=== PATIENT | female | born 1975 | race Caucasian/White ===

== ENCOUNTER 2016-10-29 17:25 | Inpatient (IN) | payer OTHER ==
[~2016-10-29] VITALS: Ht 154.9 cm; Wt 103.9 kg
[~2016-10-29 17:25] MED LIST: ASPIRIN81 M1 OR; ATENOLOL25 MG PO; AUGMENTIN875 MG OR; BACTRIM DS1 TAB PO; CARAFATE OR; CEPHALEXIN500 MG OR; CIPROFLOXACN500 MG PO; CRESTOR5 MG OR; FLEXERIL OR; FLUOXETINE10 MG PO; GABAPENTIN300 MG PO; HUMULIN 70/30 SC; LEVEMIR SC; LEXAPRO10 MG OR; LEXAPRO20 MG OR; LIORESAL10 MG OR; LISINOPRIL20 MG PO; LOPID600 MG OR; LORTAB 5 OR; LYRICA75 MG OR; METFORMIN500 MG PO; METHADONE10 M1 PO; MOTRIN800 MG/TAB PO; NABUMETONE750 MG OR; NAPROSYN500 MG OR; NO HOME MEDS; PERCOGESIC1 TAB OR; PRAVASTATIN SOD20 MG PO; PRAVASTATIN SOD40 MG OR; PRILOSEC40 MG PO; REGLAN10 MG PO; ROXICODONE30 MG PO; ST JOSEPH75 MG OR; TRAZODONE150 MG OR; TRAZODONE150 MG PO; XANAX2 MG PO; ZANAFLEX4 MG PO
--- NOTE | 2016-10-29 17:35 | NUR ---
PT AMBULATED TO ROOM 13 WITH DAUGHTER.
[2016-10-29 18:11] LABS: HEMATOCRIT 36.2 % (37.0-47.0); HEMOGLOBIN 12.1 g/dl (12.0-16.0); IMMATURE GRANULOCYTES 1.1 % (0.0-1.0); MEAN CELL VOLUME 79.7 fL CALC (80.0-100.0); MEAN CORPUSCULAR HGB 26.7 pG CALC (26.0-32.0); MEAN CORPUSCULAR HGB CONC 33.4 g/L CALC (32.0-36.0); NEUT# 15.7 thou/uL (2.00-7.15); RED BLOOD COUNT 4.54 mill/uL (4.20-5.60); RED CELL DISTRI WIDTH 13.8 % (11.5-15.5)
[2016-10-29 18:13] LABS: URINE BILIRUBIN - DIPSTICK NEGATIVE (NEGATIVE); URINE BLOOD DIPSTICK MODERATE (NEGATIVE); URINE CLARITY SLIGHT CLOUDY; URINE COLOR YELLOW; URINE GLUCOSE - DIPSTICK NEGATIVE (NEGATIVE); URINE KETONE NEGATIVE (NEGATIVE); URINE PROTEIN - DIPSTICK 100 mg/dL (NEG-TRACE); URINE UROBILINOGEN - DIPSTICK >=8.0 E.U./dL (0.2)
[2016-10-29 18:19] LABS: URINE LEUK ESTERASE SMALL (NEGATIVE); URINE NITRITE - DIPSTICK POSITIVE (Negative)
[2016-10-29 18:21] LABS: URINE BACTERIA FEW hpf; URINE SQUAMOUS EPITHELIAL CELL FEW EPI/hpf (0-FEW); URINE WBC 20-50 WBC/hpf (0-5)
[2016-10-29 18:29] LABS: ALBUMIN 3.4 g/dL (3.2-5.0); ALKALINE PHOSPHATASE 278 u/l (38-126); ANION GAP 18 (6-22 (CALC)); BILIRUBIN, TOTAL 0.4 mg/dL (0.0-1.4); BUN 15 mg/dL (7-17); BUN/CREATININE RATIO 20 (12-20 (CALC)); CALCIUM 9.5 mg/dL (8.4-10.2); CARBON DIOXIDE 30 mmol/l (22-30); CHLORIDE 95 mmol/l (95-108); CREATININE 0.8 mg/dL (0.5-1.0); GFR > 60 ML/MIN (>=60 (CALC)); GFR FOR AFR.AMER. > 60 ML/MIN (>=60 (CALC)); GLUCOSE 131 mg/dL (65-105); POTASSIUM 3.4 mmol/l (3.5-5.1); SGOT/AST 26 u/l (14-36); SGPT/ALT 36 u/l (9-52); SODIUM 139 mmol/l (137-146); TOTAL PROTEIN 7.5 g/dL (6.3-8.2)
--- NOTE | 2016-10-29 18:40 | NUR ---
PT RESTING COMFORTABLY RATES PAIN 0/10 AFTER MEDS ORDERED. 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 SRX2,CALL LIGHT WITHIN REACH. VSS.DAUGHTER-IN -LAW AT BEDSIDE
--- NOTE | 2016-10-29 18:50 | NUR ---
REPORT TO ASHLIE ANDERSON
--- NOTE | 2016-10-29 19:20 | NUR ---
PT PROVIDED ICE CHIPS, OK PER DR HOBSON.
--- NOTE | 2016-10-29 19:57 | NUR ---
PT TO CT.
--- NOTE | 2016-10-29 20:18 | NUR ---
PT RETURNED FROM CT.
--- NOTE | 2016-10-29 20:24 | NUR ---
PT RELATED PAIN IS DOING OK.
--- NOTE | 2016-10-29 20:55 | NUR ---
REPORT TO [facility]/SURG.
[2016-10-29 21:00] VITALS: BP 124/77
--- NOTE | 2016-10-29 21:00 | NUR ---
PT TO 290 VIA W/C WITH
--- NOTE | 2016-10-29 21:00 | NUR ---
PT ARRIVED TO UNIT VIA WHEELCHAIR WITH ASHLIE ANDERSON. AMBULATED FROM W/C TO BED INDEPENDENTLY. STATES THAT ANALGESICS ADMINISTERED IN ER WERE EFFECTIVE. RESPIRATIONS ARE EVEN AND UNLABORED. ORIENTED TO ROOM. SAFETY MEASURES PUT IN PLACE. CALL LIGHT SYSTEM REVIEWED AND IN REACH.
--- NOTE | 2016-10-30 | NUR ---
PT IS ALSEEP AT THIS TIME. NO SIGNS OF PAIN NOTED. DIALUDID GIVEN EARLIER FOR LOWER BACK PAIN THAT RADIATES TO RIGHT ABDOMEN. RESPIRATIONS EVEN AND UNLABORED. IV FLUIDS INFUSING ADEQUATLEY IN IV SITE THAT APPEARS HEALTHY. AND SON AT BEDSIDE. SCDS IN PLACE. SAFETY MEASURES IN PLACE. CALL LIGHT IN REACH.
[2016-10-30 04:50] VITALS: BP 144/92
--- NOTE | 2016-10-30 07:06 | NUR ---
REPORT RECIEVED FROM DREAD HONG; PT RESTING IN BED; TEMP RECHECKED READING 100.4; PT MEDICATED WITH TYLENOL PER PRN ORDER; WILL RECHECK TEMP LATER; PT DENIES ANY PAIN OR DISCOMFORT AT THIS TIME; PT ENCOURAGED TO CALL FOR ANY ASSISTANCE NEEDED; CALL LIGHT WITHIN REACH; WILL CONTINUE TO MONITOR
[2016-10-30 07:47] VITALS: BP 125/81
[2016-10-30 08:49] LABS: ANION GAP 14 (6-22 (CALC)); BUN 15 mg/dL (7-17); BUN/CREATININE RATIO 19 (12-20 (CALC)); CALCIUM 8.2 mg/dL (8.4-10.2); CARBON DIOXIDE 28 mmol/l (22-30); CHLORIDE 100 mmol/l (95-108); CREATININE 0.8 mg/dL (0.5-1.0); GFR > 60 ML/MIN (>=60 (CALC)); GFR FOR AFR.AMER. > 60 ML/MIN (>=60 (CALC)); GLUCOSE 190 mg/dL (65-105); POTASSIUM 3.5 mmol/l (3.5-5.1); SODIUM 137 mmol/l (137-146)
[2016-10-30 09:02] LABS: HEMATOCRIT 30.4 % (37.0-47.0); HEMOGLOBIN 10.1 g/dl (12.0-16.0); MEAN CELL VOLUME 80.6 fL CALC (80.0-100.0); MEAN CORPUSCULAR HGB 26.8 pG CALC (26.0-32.0); MEAN CORPUSCULAR HGB CONC 33.2 g/L CALC (32.0-36.0); NEUT# 13.19 thou/uL (2.00-7.15); RED BLOOD COUNT 3.77 mill/uL (4.20-5.60)
--- NOTE | 2016-10-30 12:13 | NUR ---
PT SITTING UP IN BED FOR LUNCH; NO S/S OF DISTRESS NOTED; PT STATES PAIN AND NAUSEA ARE BETTER AT THIS TIME; IVF INFUSING AT PRESCRIBED RATE; CALL LIGHT WITHIN REACH; WILL CONTINUE TO MONITOR
--- NOTE | 2016-10-30 14:50 | NUR ---
PT C/O FLANK PAIN RATING 6 OUT OF 10; MEDICATED WITH LORTAB PER PRN ORDERS; IVF INFUSING AT PRESCRIBED RATE; PT DENIES ANY N/V AT THIS TIME; PT ENCOURAGED TO CALL FOR ANY ASSISTANCE NEEDED; CALL LIGHT WITHIN REACH; WILL CONTINUE TO MONITOR
[2016-10-30 15:26] VITALS: BP 123/75
--- NOTE | 2016-10-30 16:30 | NUR ---
PT SITTING UP IN BED; NO S/S OF DISTRESS NOTED; PT DENIES ANY PAIN AT THIS TIME; IVF INFUSING AT PRESCRIBED RATE; CALL LIGHT WITHIN REACH; WILL CONTINUE TO MONITOR
[2016-10-30 19:10] VITALS: BP 142/88
[2016-10-30 19:15] VITALS: BP 128/68
--- NOTE | 2016-10-30 20:40 | NUR ---
PT RESTING IN SEMI FOWLERS POSITION;PT DENIES ANY PAIN OR DISCOMFORTS;IV FLUIDS INFUSING WELL TO LAC;ASSESSMENT COMPLETED;PT HAS A CURRENT TEMP OF 100.8;TYLENOL PROVIDED PER PRN ORDER;BLANKETS REMOVED,AC LOWERED AND COOL PACKS PROVIDED;PT AMBULATED TO RESTROOM WITH STEADY GAIT;PT DENIES ANY NEEDS AT THIS TIME;SAFETY PRECAUTIONS IN PLACE;BED IN LOWEST POSITION WITH CALL LIGHT IN REACH;WILL CONTINUE TO MONITOR
--- NOTE | 2016-10-30 23:00 | NUR ---
PT RESTING IN SEMI FOWLERS POSITION;PT COMPLAINS OF BACK PAIN RATING 7/10 ON THE PAIN SCALE AND REQUESTS PRN PAIN MEDICATION;PT MEDICATED ACCORDINGLY;IV FLUIDS INFUSING WELL;PT DENIES ANY OTHER NEEDS AT THIS TIME;BED IN LOWEST POSITION WITH CALL LIGHT IN REACH;WILL CONTINUE TO MONITOR
[2016-10-31 04:00] VITALS: BP 142/88
--- NOTE | 2016-10-31 04:00 | NUR ---
PT RESTING IN SEMI FOWLERS POSITION;PT COMPLAINS OF BACK AND RIGHT FLANK PAIN RATING 7/10 ON THE PAIN SCALE AND REQUESTS PRN PAIN MEDICATION;MEDICATED ACCORDINGLY;PT REPORTS THAT SHE HAD VOMITED WITHIN THE HOUR,THIS WAS NOT OBSERVED BY WRITTER;PRN ZOFRAN PROVIDED;IV FLUIDS INFUSING WELL AT THIS TIME;PT DENIES ANY OTHER NEEDS;BED IN LOWEST POSITION WITH CALL LIGHT IN REACH;WILL CONTINUE TO MONITOR
--- NOTE | 2016-10-31 07:00 | NUR ---
SHIFT CHANGE REPORT FROM WARREN GANDHI SLEEPING WITH HEAD COVERED AT THIS TIME, BREATHING EVEN AND NON-LABORED, IVF INFUSING, CALL OJEDA IN REACH.
--- NOTE | 2016-10-31 07:43 | NUR ---
AWAKE AND ALERT AT THIS TIME, C/O R. FLANK PAIN, NEED ADDRESSED, CALL OJEDA IN REACH.
[2016-10-31 08:16] VITALS: BP 126/73
--- NOTE | 2016-10-31 11:58 | NUR ---
SITTING UP AT BEDSIDE FOR MEAL, ALL CONCERNS ADDRESSED, CALL OJEDA IN REACH.
[2016-10-31 16:05] VITALS: BP 143/91
--- NOTE | 2016-10-31 16:22 | NUR ---
RESTING/RELAXING IN BED, ALL NEEDS ADDRESSED, CALL OJEDA IN REACH.
[2016-10-31 20:15] VITALS: BP 157/87
--- NOTE | 2016-10-31 20:40 | NUR ---
PATIENT RESTING IN BED AT THIS TIME-C/O RIGHT FLANK PAIN 8/10 ON PAIN SCALE. PATIENT MEDICATED WITH LORTAB 10/325MG PO ORDERED. PATIENT UP TO THE BR-STEADY ON HER FEET. PATIENT VOIDED 200CC OF YELLOW URINE-INSTRUCTED TO SAVE URINE FOR I&O. PATIENT STATES THAT SHE HAD BM EARLIER AFTER NOT GOING FOR 5 DAYS. ABD IS SOFT AND NON-TENDER WITH ACTIVE BS PRESENT. IVF NS PATENT AND INFUSING AT 150CC/HR VIA LEFT AC SITE-SITE APPEARS HEALTHY AT THIS TIME. SAFETY PRECAUTIONS REINFORCED. CALL LIGHT IN REACH. WILL CONT TO MONITOR.
--- NOTE | 2016-10-31 20:45 | NUR ---
PATIENT C/O RIGHT SIDED FLANK PAIN-MEDICATED WITH LORTAB ORDERED FOR PAIN. INSTRUCTED REGUARDING I&O AND URINE HAT PLACED IN THE TOILET. 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 CALL LIGHT IN REACH. WILL CONT TO MONITOR.
--- NOTE | 2016-11-01 | NUR ---
PATIENT APPEARS SLEEPING AT THIS TIME WITH EYES CLOSED. CALL LIGHT IN REACH. IVF PATENT AND INFUSING AT 150CC/HR VIA LEFT AC IV SITE. SITE APPEARS HEALTHY AT TH IS TIME. WILL CONT TO MONITOR.
--- NOTE | 2016-11-01 02:36 | NUR ---
PATIENT CALLED AND C/O RIGHT SIDE PAIN-8/10 ON PAIN SCALE. MEDICATED WITH LORTAB 10/325MG PO ORDERED. PATIENT CONT TO VOID QS-HAT EMPTIED. CALL LIGHT IN REACH. WILL CONT TO MONITOR.
--- NOTE | 2016-11-01 03:49 | NUR ---
PATIENT APPEARS SLEEPING AT THIS TIME WITH EYES CLOSED. CALL LIGHT IN REACH. WILL CONT TO MONITOR.
[2016-11-01 05:00] VITALS: BP 134/90
[2016-11-01 06:10] LABS: HEMATOCRIT 31.2 % (37.0-47.0); HEMOGLOBIN 10.5 g/dl (12.0-16.0); MEAN CELL VOLUME 79.4 fL CALC (80.0-100.0); MEAN CORPUSCULAR HGB 26.7 pG CALC (26.0-32.0); MEAN CORPUSCULAR HGB CONC 33.7 g/L CALC (32.0-36.0); RED BLOOD COUNT 3.93 mill/uL (4.20-5.60); RED CELL DISTRI WIDTH 13.5 % (11.5-15.5)
[2016-11-01 06:27] LABS: ANION GAP 14 (6-22 (CALC)); BUN 9 mg/dL (7-17); BUN/CREATININE RATIO 14 (12-20 (CALC)); CALCIUM 8.7 mg/dL (8.4-10.2); CARBON DIOXIDE 30 mmol/l (22-30); CHLORIDE 98 mmol/l (95-108); CREATININE 0.7 mg/dL (0.5-1.0); GFR > 60 ML/MIN (>=60 (CALC)); GFR FOR AFR.AMER. > 60 ML/MIN (>=60 (CALC)); GLUCOSE 198 mg/dL (65-105); POTASSIUM 3.7 mmol/l (3.5-5.1); SODIUM 139 mmol/l (137-146)
[2016-11-01 06:30] LABS: PLATELET COUNT 439 thou/uL (130-400)
[2016-11-01 06:31] LABS: MANUAL DIFFERENTIAL YES
--- NOTE | 2016-11-01 07:00 | NUR ---
SHIFT CHANGE REPORT FROM WARREN ELIAS SLEEPING AT THIS TIME BUT AWAKENED SORTLY AFTER C/O ACHING HEADACHE @ 04/09, CONCERN ADDRESSED WITH MED AND ICE PACK, IVF INFUSING, CALL OJEDA IN REACH, WILL CONTINUE TO MONITOR.
[2016-11-01 08:02] VITALS: BP 140/88
--- NOTE | 2016-11-01 11:30 | NUR ---
REPORTED NAUSEA AND VOMITTING AT THIS TIME, ZOFRAN GIVEN, WILL CONTINUE TO MONITOR.
[2016-11-01 16:03] VITALS: BP 146/90
--- NOTE | 2016-11-01 16:32 | NUR ---
RESTING IN BED, STATES HER PAIN TO R. SIDE HAS COMPLETELY SUBSIDED, REQUESTING SNACK AT THIS TIME, NEEDS ADDRESSED, CALL OJEDA IN REACH.
--- NOTE | 2016-11-01 19:30 | NUR ---
PATIENT APPEARS SLEEPING AT THIS TIME WITH EYES CLOSED. IVF PATENT AND INFUSING AT 150CC/HR. CALL LIGHT IN REACH. WILL CONT TO MONITOR,
[2016-11-01 20:00] VITALS: BP 148/75
--- NOTE | 2016-11-01 21:00 | NUR ---
PATIENT UP TO THE BR TO VOID WITHOUT ANY DIFFICULTY. PATIENT IS STEADY ON HER FEET. PATIENT C/O RIGHT FLANK PAIN AND MEDICATED WITH LORTAB 10/325MG PO ORDERED FOR PAIN. IV SITE APPEARS RED AND PAINFUL. SITE D/C AND NEW IV SITE STARTED TO RIGHT FOREARM-#22 GAUGE WITH GOOD BLOOD RETURN. IVF NS PATENT AND INFUSING AT 150CC/HR. IV SITE TO LEFT AC D/LISY. CALL LIGHT IN REACH. WILL CONT TO MONITOR.
--- NOTE | 2016-11-02 00:27 | NUR ---
PATIENT APPEARS SLEEPING POSITIONED ON RIGHT SIDE WITH EYES CLOSED. CALL LIGHT IN REACH. WILL CONT TO MONITOR.
[2016-11-02 04:08] VITALS: BP 155/79
--- NOTE | 2016-11-02 04:08 | NUR ---
PATIENT C/O RIGHT FLANK AND ABD PAIN-7/10 ON PAIN SCALE. PATIENT MEDICATED WITH LORTAB 10/325MG PO ORDERED. CALL LIGHT IN REACH. IVF PATENT AND INFUSING AT 150CC/HR. WILL CONT TO MONITOR.
[2016-11-02 05:45] LABS: HEMATOCRIT 32.7 % (37.0-47.0); HEMOGLOBIN 10.8 g/dl (12.0-16.0); MEAN CORPUSCULAR HGB 26.1 pG CALC (26.0-32.0); RED BLOOD COUNT 4.14 mill/uL (4.20-5.60); RED CELL DISTRI WIDTH 13.5 % (11.5-15.5)
[2016-11-02 06:11] LABS: ANION GAP 15 (6-22 (CALC)); BUN 10 mg/dL (7-17); BUN/CREATININE RATIO 16 (12-20 (CALC)); CARBON DIOXIDE 28 mmol/l (22-30); CHLORIDE 99 mmol/l (95-108); CREATININE 0.7 mg/dL (0.5-1.0); GFR > 60 ML/MIN (>=60 (CALC)); GFR FOR AFR.AMER. > 60 ML/MIN (>=60 (CALC)); GLUCOSE 200 mg/dL (65-105); POTASSIUM 3.5 mmol/l (3.5-5.1); SODIUM 139 mmol/l (137-146)
[2016-11-02 06:13] LABS: IMMATURE GRANULOCYTES 7.9 % (0.0-1.0); PLATELET COUNT 527 thou/uL (130-400)
[2016-11-02 06:14] LABS: BAND 2 % (0-8); MANUAL DIFFERENTIAL YES
--- NOTE | 2016-11-02 07:00 | NUR ---
REPORT RECIEVED FROM ASHLIE ELIAS; PT RESTING IN BED WITH EYES CLOSED; NO S/S OF DISTRESS NOTED; FALL PRECAUTIONS IN PLACE; CALL LIGHT WITHIN REACH; WILL CONTINUE TO MONITOR
[2016-11-02 09:10] VITALS: BP 149/76
--- NOTE | 2016-11-02 12:15 | NUR ---
PT RESTING IN BED; C/O HEADACHE; PT INFORMED WHEN NEXT AVAILABLE DOSE OF PAIN MEDICATION; IVF INFUSING AT PRESCRIBED RATE; PT DENIES ANY N/V AT THIS TIME; CALL GARO GARIBAY; WILL CONTINUE TO MONITOR
[2016-11-02] MEDS ORDERED: VANTIN200 M1 PO (14:25)
[2016-11-02] MEDS ORDERED: ZOFRAN ODT4 MG PO (14:26)
[2016-11-02] MEDS ORDERED: LORTAB 5/3255 MG PO (14:26)
--- NOTE | 2016-11-02 14:45 | NUR ---
Discharge instructions given. Patient verbalizes understanding of same. Discharged in stable condition via Ambulatory to Home with family. All belongings sent with pt.
== END 2016-11-02 14:45 | disposition home or self-care (01) | DRG 872 ==
LOC: ENPENDDIS → ED 17:25 → ED-I 20:28 → ED 20:31 → MS2 20:32
PROVIDERS: Emergency Medicine; Internal Medicine; ADMIT Internal Medicine; ATTEND Internal Medicine
PROC: 3E0234Z Introduction of Serum, Toxoid and Vaccine into Muscle, Percutaneous Approach (ICD-10-PCS; principal; 2016-10-31)
DX: A41.9 Sepsis, unspecified organism (principal); N10 Acute pyelonephritis; B96.20 Unspecified Escherichia coli [E. coli] as the cause of diseases classified elsewhere; R11.2 Nausea with vomiting, unspecified; Z23 Encounter for immunization; Z87.891 Personal history of nicotine dependence
CPT/HCPCS: J1650

== ENCOUNTER 2017-05-26 12:31 | Emergency (ER) | payer OTHER ==
[~2017-05-26] VITALS: Ht 154.9 cm; Wt 100.0 kg
[~2017-05-26 12:31] MED LIST changes: +LORTAB 5/3255 MG PO; +VANTIN200 M1 PO; +ZOFRAN ODT4 MG PO
[2017-05-26] MEDS ORDERED: NAPROSYN500 MG PO (15:14)
[2017-05-26 15:30] VITALS: BP 137/87
== END 2017-05-26 15:31 | disposition home or self-care (01) | DRG 552 ==
LOC: ED 12:31
DX: S16.1XXA Strain of muscle, fascia and tendon at neck level, initial encounter (principal); S09.90XA Unspecified injury of head, initial encounter; M54.9 Dorsalgia, unspecified; E11.9 Type 2 diabetes mellitus without complications; E78.5 Hyperlipidemia, unspecified; F17.210 Nicotine dependence, cigarettes, uncomplicated; W01.0XXA Fall on same level from slipping, tripping and stumbling without subsequent striking against object, initial encounter; Y92.009 Unspecified place in unspecified non-institutional (private) residence as the place of occurrence of the external cause; M54.2 Cervicalgia; M25.562 Pain in left knee

== ENCOUNTER 2017-05-30 21:22 | Observation (INO) | payer OTHER ==
[~2017-05-30] VITALS: Ht 154.9 cm; Wt 106.6 kg
[~2017-05-30 21:22] MED LIST changes: +NAPROSYN500 MG PO
[2017-05-30] MEDS ORDERED: METFORMIN500 MG PO (21:34)
[2017-05-30] MEDS ORDERED: LISINOPRIL10 MG PO (21:34)
[2017-05-30] MEDS ORDERED: LATUDA60 MG PO (21:35)
[2017-05-30] MEDS ORDERED: HYDROCHLOROT12.5 MG PO (21:35)
--- NOTE | 2017-05-30 21:35 | NUR ---
ARRIVES VIA [facility], IN NAD AT PRESENT. RECEIVED ASA 324 MG PO AND 2 DOSES OF NITROGLYCERIN FROM EMS.
[2017-05-30 21:55] LABS: HEMATOCRIT 35.9 % (37.0-47.0); HEMOGLOBIN 11.7 g/dl (12.0-16.0); IMMATURE GRANULOCYTES 0.6 % (0.0-1.0); MEAN CELL VOLUME 81.6 fL CALC (80.0-100.0); MEAN CORPUSCULAR HGB 26.6 pG CALC (26.0-32.0); MEAN CORPUSCULAR HGB CONC 32.6 g/L CALC (32.0-36.0); NEUT# 8.22 thou/uL (2.00-7.15); RED BLOOD COUNT 4.4 mill/uL (4.20-5.60)
[2017-05-30 22:06] LABS: ALBUMIN 3.8 g/dL (3.2-5.0); ALKALINE PHOSPHATASE 82 u/l (38-126); ANION GAP 14 (6-22 (CALC)); BILIRUBIN, TOTAL 0.3 mg/dL (0.0-1.4); BUN 14 mg/dL (7-17); BUN/CREATININE RATIO 17 (12-20 (CALC)); CALCIUM 9.1 mg/dL (8.4-10.2); CARBON DIOXIDE 26 mmol/l (22-30); CHLORIDE 106 mmol/l (95-108); CREATININE 0.8 mg/dL (0.5-1.0); GFR > 60 ML/MIN (>=60 (CALC)); GFR FOR AFR.AMER. > 60 ML/MIN (>=60 (CALC)); GLUCOSE 188 mg/dL (65-105); POTASSIUM 3.6 mmol/l (3.5-5.1); SGOT/AST 16 u/l (14-36); SGPT/ALT 27 u/l (9-52); SODIUM 142 mmol/l (137-146); TOTAL PROTEIN 6.8 g/dL (6.3-8.2)
[2017-05-30 22:18] LABS: MYOGLOBIN 18 ng/mL (0 - 62)
--- NOTE | 2017-05-30 22:20 | NUR ---
PT HAD INCREASE OF CHEST PAIN THAT WAS 9/10, MEDICATED WITH TORADOL.
--- NOTE | 2017-05-30 22:55 | NUR ---
PAIN DOWN TO 2/10
--- NOTE | 2017-05-30 23:05 | NUR ---
Admission Note Report Given to: DREAD HONG Transported by: X Wheelchair Stretcher Transported with: X Nurse Transporter X Patent IV O2 X Stereotyper Helper
[2017-05-30 23:15] VITALS: BP 136/89
--- NOTE | 2017-05-30 23:15 | NUR ---
PT ARRIVED TO UNIT VIA WHEELCHAIR WITH ER STAFF. ALERT AND ORINETED UPON ARRIVAL WITH . STATES PAIN LEVEL 7/10 TO CHEST. RESPIRATIONS EVEN AND UNLABORED WITH SOB ON EXERTION. 98% ON ROOM AIR, HOWEVER, REQUESTS OXYGEN FOR SOB. PLACED ON 2L PRN. ORIENTED TO ROOM AND CALL LIGHT SYSTEM. SAFETY MEASURES IMPLEMENTED. CALL LIGHT SYSTEM REVIEWED AND IN REACH.
[2017-05-30 23:48] LABS: URINE BILIRUBIN - DIPSTICK NEGATIVE (NEGATIVE); URINE BLOOD DIPSTICK NEGATIVE (NEGATIVE); URINE CLARITY CLOUDY; URINE COLOR YELLOW; URINE GLUCOSE - DIPSTICK 100 mg/dL (NEGATIVE); URINE KETONE NEGATIVE (NEGATIVE); URINE LEUK ESTERASE NEGATIVE (NEGATIVE); URINE NITRITE - DIPSTICK NEGATIVE (Negative); URINE PROTEIN - DIPSTICK NEGATIVE (NEG-TRACE); URINE SPECIFIC GRAVITY >=1.030; URINE UROBILINOGEN - DIPSTICK 0.2 E.U./dL (0.2)
[2017-05-30 23:53] LABS: BARBITURATES NEGATIVE (NEGATIVE); COCAINE NEGATIVE (NEGATIVE); METHADONE NEGATIVE (NEGATIVE); OXCYCODONE NEGATIVE (NEGATIVE); TETRAHYDROCANNABIONOL NEGATIVE (NEGATIVE); TRICYLIC ANTIDEPRESSANTS NEGATIVE (NEGATIVE)
--- NOTE | 2017-05-31 04:20 | NUR ---
NO ACUTE CHANGES IN PATIENT CONDITION. STATES THAT CHEST PAIN HAS SUBSIDED AND IS NOW MILD AT 2/10.
[2017-05-31 04:21] LABS: ANION GAP 11 (6-22 (CALC)); BUN 15 mg/dL (7-17); BUN/CREATININE RATIO 20 (12-20 (CALC)); CALCIUM 9.2 mg/dL (8.4-10.2); CARBON DIOXIDE 26 mmol/l (22-30); CHLORIDE 108 mmol/l (95-108); CHOLESTEROL HDL RATIO 5.3 (<4.4 (CALC)); CREATININE 0.8 mg/dL (0.5-1.0); GFR > 60 ML/MIN (>=60 (CALC)); GFR FOR AFR.AMER. > 60 ML/MIN (>=60 (CALC)); GLUCOSE 196 mg/dL (65-105); HDL CHOLESTEROL 35 mg/dL (>=40); MAGNESIUM 1.9 mg/dL (1.6-2.3); POTASSIUM 4.1 mmol/l (3.5-5.1); SODIUM 141 mmol/l (137-146); TOTAL CHOLESTEROL 188 mg/dl (0-199); VLDL CHOLESTROL 98 mg/dl (1-41 (CALC))
[2017-05-31 04:25] LABS: TRIGLYCERIDES REFLEX TO dLDL 492 mg/dl (30-149)
[2017-05-31 05:17] VITALS: BP 136/82
--- NOTE | 2017-05-31 07:15 | NUR ---
PT RESTING WITH EYES CLOSED; AROUSED EASILY TO VERBAL STIMULI; TELE MONITOR IN PLACE; NO COMPLAINTS VOICED AT THIS TIME; CALL OJEDA WITHIN REACH; WILL CONTINUE TO MONITOR.
[2017-05-31 07:39] VITALS: BP 149/81
--- NOTE | 2017-05-31 09:37 | NUR ---
Patient consented to receive pneumonia vaccine for this admission. Pneumonia vaccine NOT given as patient just receive PPSV-23 (Pneumovax) on 10/31/2016 at this facility. Patient is not due for another pneumonia vaccine at this time.
--- NOTE | 2017-05-31 09:41 | NUR ---
PT MEDICATED ORDERED FOR MIDSTERNAL PAIN 01/07; TELE MONITOR IN PLACE; CALL OJEDA WITHIN REACH; WILL CONTINUE TO MONITOR.
[2017-05-31 11:24] VITALS: BP 134/75
[2017-05-31] MEDS ORDERED: FISH OIL1000 MG PO (11:50)
[2017-05-31] MEDS ORDERED: ATORVASTATIN CA10 MG PO (11:50)
[2017-05-31] MEDS ORDERED: JANUVIA50 MG PO (11:50)
[2017-05-31] MEDS ORDERED: ASPIRIN CHEWABL81 MG PO (11:50)
--- NOTE | 2017-05-31 13:02 | NUR ---
Discharge instructions given. Patient verbalizes understanding of same. Discharged in stable condition via Ambulatory to Home with family. All belongings sent with pt.
== END 2017-05-31 13:00 | disposition home or self-care (01) | DRG 313 ==
LOC: ED 21:22 → ED-I 22:00 → ED 22:00 → ED-I 22:10 → ED 22:30 → MS2 22:31
PROVIDERS: Emergency Medicine; ADMIT Internal Medicine; ATTEND Internal Medicine
DX: R07.89 Other chest pain (principal); Z68.41 Body mass index [BMI] 40.0-44.9, adult; I10 Essential (primary) hypertension; E11.9 Type 2 diabetes mellitus without complications; E78.5 Hyperlipidemia, unspecified; F17.210 Nicotine dependence, cigarettes, uncomplicated; R42 Dizziness and giddiness; E78.1 Pure hyperglyceridemia; R20.2 Paresthesia of skin; Z79.84 Long term (current) use of oral hypoglycemic drugs
CPT/HCPCS: G0378

== ENCOUNTER 2017-07-05 07:31 | Emergency (ER) | payer OTHER ==
[~2017-07-05] VITALS: Ht 154.9 cm; Wt 100.0 kg
[~2017-07-05 07:31] MED LIST changes: +ASPIRIN CHEWABL81 MG PO; +ATORVASTATIN CA10 MG PO; +FISH OIL1000 MG PO; +HYDROCHLOROT12.5 MG PO; +JANUVIA50 MG PO; +LATUDA60 MG PO; +LISINOPRIL10 MG PO
[2017-07-05] MEDS ORDERED: TOPAMAX25 MG PO (07:45)
[2017-07-05] MEDS ORDERED: ARIPIPRAZOLE5 MG PO (07:47)
[2017-07-05] MEDS ORDERED: TEMAZEPAM30 MG PO (07:49)
[2017-07-05] MEDS ORDERED: SYMBICORT1 AE1 IN (07:51)
[2017-07-05] MEDS ORDERED: PROAIR HFA IN (07:51)
[2017-07-05 08:15] LABS: HEMATOCRIT 39.3 % (37.0-47.0); HEMOGLOBIN 13.1 g/dl (12.0-16.0); IMMATURE GRANULOCYTES 0.5 % (0.0-1.0); MEAN CORPUSCULAR HGB 27.3 pG CALC (26.0-32.0); MEAN CORPUSCULAR HGB CONC 33.3 g/L CALC (32.0-36.0); NEUT# 9.73 thou/uL (2.00-7.15); RED BLOOD COUNT 4.79 mill/uL (4.20-5.60); RED CELL DISTRI WIDTH 14.6 % (11.5-15.5)
[2017-07-05 08:33] LABS: ALKALINE PHOSPHATASE 84 u/l (38-126); ANION GAP 17 (6-22 (CALC)); BILIRUBIN, TOTAL 0.2 mg/dL (0.0-1.4); BUN 13 mg/dL (7-17); BUN/CREATININE RATIO 17 (12-20 (CALC)); CALCIUM 9.7 mg/dL (8.4-10.2); CARBON DIOXIDE 22 mmol/l (22-30); CHLORIDE 105 mmol/l (95-108); CREATININE 0.8 mg/dL (0.5-1.0); GFR > 60 ML/MIN (>=60 (CALC)); GFR FOR AFR.AMER. > 60 ML/MIN (>=60 (CALC)); GLUCOSE 194 mg/dL (65-105); LIPASE 96 u/l (23-300); POTASSIUM 4.5 mmol/l (3.5-5.1); SGOT/AST 14 u/l (14-36); SGPT/ALT 26 u/l (9-52); SODIUM 140 mmol/l (137-146); TOTAL PROTEIN 7.1 g/dL (6.3-8.2)
[2017-07-05 08:45] LABS: MYOGLOBIN 18 ng/mL (0 - 62)
[2017-07-05 10:27] LABS: BARBITURATES NEGATIVE (NEGATIVE); COCAINE NEGATIVE (NEGATIVE); METHADONE NEGATIVE (NEGATIVE); OXCYCODONE NEGATIVE (NEGATIVE); TETRAHYDROCANNABIONOL NEGATIVE (NEGATIVE); TRICYLIC ANTIDEPRESSANTS NEGATIVE (NEGATIVE)
[2017-07-05] MEDS ORDERED: PROTONIX40 MG PO (11:33)
[2017-07-05 11:41] VITALS: BP 129/84
== END 2017-07-05 11:47 | disposition home or self-care (01) | DRG 313 ==
LOC: ED 07:31
PROVIDERS: Emergency Medicine
DX: R07.89 Other chest pain (principal); R06.02 Shortness of breath

== ENCOUNTER 2017-10-23 17:29 | Observation (INO) | payer OTHER ==
[~2017-10-23] VITALS: Ht 154.9 cm; Wt 100.0 kg
[~2017-10-23 17:29] MED LIST changes: +ARIPIPRAZOLE5 MG PO; +PROAIR HFA IN; +PROTONIX40 MG PO; +SYMBICORT1 AE1 IN; +TEMAZEPAM30 MG PO; +TOPAMAX25 MG PO
--- NOTE | 2017-10-23 17:35 | NUR ---
PATIENT TO ROOM VIA WHEELCHAIR AND PHYSICIAN AT BEDSIDE FOR EVALUATION
[2017-10-23 18:17] LABS: HEMATOCRIT 40.8 % (37.0-47.0); HEMOGLOBIN 13.4 g/dl (12.0-16.0); IMMATURE GRANULOCYTES 0.6 % (0.0-1.0); MEAN CELL VOLUME 81.9 fL CALC (80.0-100.0); MEAN CORPUSCULAR HGB 26.9 pG CALC (26.0-32.0); MEAN CORPUSCULAR HGB CONC 32.8 g/L CALC (32.0-36.0); NEUT# 10.19 thou/uL (2.00-7.15); RED BLOOD COUNT 4.98 mill/uL (4.20-5.60); RED CELL DISTRI WIDTH 13.9 % (11.5-15.5)
--- NOTE | 2017-10-23 18:20 | NUR ---
PT C/O MIDSTERNAL CP SINCE LAST NIGHT. DENIES SOB. PT SMELLS OF CIGARETTE SMOKE , CHEWING GUM UPON ARRIVAL. PT CHANGED INTO GOWN. EKG COMPLETE. IV ESTABLISHED. MD @ BEDSIDE. PT ADMITS 'EXTRA STRESS LATELY".
[2017-10-23 18:32] LABS: BUN 15 mg/dL (7-17); BUN/CREATININE RATIO 18 (12-20 (CALC)); CARBON DIOXIDE 25 mmol/l (22-30); CHLORIDE 101 mmol/l (95-108); CREATININE 0.8 mg/dL (0.5-1.0); GFR > 60 ML/MIN (>=60 (CALC)); GFR FOR AFR.AMER. > 60 ML/MIN (>=60 (CALC)); SODIUM 142 mmol/l (137-146)
[2017-10-23 18:35] LABS: ANION GAP 20 (6-22 (CALC)); POTASSIUM 3.5 mmol/l (3.5-5.1)
--- NOTE | 2017-10-23 19:32 | NUR ---
PT REQUESTED IV BE PULLED AND NEW IV STARTED.
--- NOTE | 2017-10-23 19:44 | NUR ---
TRIED TO CALL REPORT TO ADMITTING RN, WAS TOLD THEY DIDNT KNOW WHO WAS TAKING REPORT OR WHAT ROOM TO GO TO BC ROOM WAS DIRTY.
--- NOTE | 2017-10-23 19:58 | NUR ---
Admission Note Report Given to: CURT Transported by: X Wheelchair Stretcher Transported with: X Nurse Transporter X Patent IV O2 X Exceptional Children[employer] Teacher NEW BED ASSIGNMENT DUE TO DIRTY KAE
--- NOTE | 2017-10-23 20:26 | NUR ---
PT TRANSPORTED TO [facility] BY WC WITH TELE IN STABLE CONDITION. RN @ BEDSIDE.
[2017-10-23 20:30] VITALS: BP 180/110
[2017-10-23 20:39] LABS: HEMATOCRIT 42.3 % (37.0-47.0); HEMOGLOBIN 13.9 g/dl (12.0-16.0); MEAN CORPUSCULAR HGB 26.9 pG CALC (26.0-32.0); MEAN CORPUSCULAR HGB CONC 32.9 g/L CALC (32.0-36.0); RED BLOOD COUNT 5.16 mill/uL (4.20-5.60); RED CELL DISTRI WIDTH 13.9 % (11.5-15.5)
[2017-10-23 21:20] VITALS: BP 139/88
--- NOTE | 2017-10-23 21:30 | NUR ---
PATIENT ADMITTED FROM ER VIA STRETCHER WITH ER STAFF IN ATTENDANCE. PATIENT AMB TO THE STANDING SCALE AND THEN TO BED. FAMILY AT BEDSIDE. PATIENT DENIES ANY PAIN AT THIS ITME. IV SITE TO RIGHT FOREARM WITH IV BOLUS FINISHING UP-SITE APPEARS HEALTHY AT THIS TIME. PATIENT STATES THAT SHE HAS BEEN HAING MID-STERNAL CHEST PAIN FOR LAST COUPLE OF DAYS WITH SOMETIMES RADIATING TO LEFT ARM. DENIES ANY PAIN AT THIS TIME. BP WAS ELEVATED WHEN ARRIVED ON UNIT BUT HAS COME DOWN SINCE. STATES THAT LAST BM WAS THIS MORNING. DENIES ANY DIFFICULTY VOIDING. ABD IS SOFT WITH BS+. NO PEDAL EDEMA NOTED-PULSE PALPABLE. PATIENT ORIENTED TO ROOM AND SURROUNDINGS. INSTRUCTED ON USE OF NURSE CALL LIGHT SYSTEM, PHONE AND TV REMOTE. PATIENT EATING FOOD PROVIDED FROM FAMILY. SAFETY INSTRUCTIONS REVIEWED WITH PATIENT. CALL LIGHT IN REACH. PATIENT MEDICATED WITH RESTORIL 30MG ORDERED FOR SLEEP. WILL CONT TO MONITOR.
[2017-10-23 21:52] VITALS: BP 139/88
--- NOTE | 2017-10-24 | NUR ---
PATIENT RESTING IN BED APPEARS SLEEPING AT THIS TIME WITH EYES CLOSED. TELE MONITORING DEVICE IN PLACE. CALL LIGHT IN REACH. WILL CONT TO MONITOR.
[2017-10-24 00:45] VITALS: BP 149/86
[2017-10-24 03:51] VITALS: BP 169/82
--- NOTE | 2017-10-24 06:14 | NUR ---
PATIENT RESTING IN BED-MEDICATED WITH HCTZ AND LISINOPRIL EARLY FOR ELEVATED BP AND HR. C/O HEADACHE AND MEDICATED WITH TYLENOL 650MG PO FOR PAIN. COLD CLOTH PROVIDED FOR HER FOREHEAD. CALL LIGHT IN REACH. WILL CONT TO MONITOR.
[2017-10-24 07:04] LABS: ANION GAP 16 (6-22 (CALC)); BUN 16 mg/dL (7-17); BUN/CREATININE RATIO 19 (12-20 (CALC)); CARBON DIOXIDE 25 mmol/l (22-30); CHLORIDE 103 mmol/l (95-108); CREATININE 0.8 mg/dL (0.5-1.0); GFR > 60 ML/MIN (>=60 (CALC)); GFR FOR AFR.AMER. > 60 ML/MIN (>=60 (CALC)); POTASSIUM 3.9 mmol/l (3.5-5.1); SODIUM 139 mmol/l (137-146)
--- NOTE | 2017-10-24 07:10 | NUR ---
REPORT RECEIVED FROM ASHLIE ELIAS;PT APPEARS TO BE SLEEPING IN SEMI FOWLERS POSITION;NO S/S OF DISTRESS NOTED;RESPIRATIONS EVEN AND UNLABORED ON RA;TELE MONITOR IN PLACE;CALL LIGHT WITHIN REACH;WILL CONTINUE TO MONITOR
--- NOTE | 2017-10-24 07:55 | NUR ---
PT APPEARS TO BE SLEEPING IN SUPINE POSITION;WOKE PT TO OBTAIN VS AND COMPLETE ASSESSMENT;RESPIRATIONS EVEN AND UNLABORED ON RA,CLEAR LUNG SOUNDS NOTED;ABDOMEN SOFT ON PALPATION AND ACTIVE IN ALL 4 QUADRANTS;STRONG PEDAL PULSES;TELE MONITOR IN PLACE;PT COMPLAINS OF HEADACHE PAIN,COOL CLOTH PROVIDED;#20G TO RIGHT FOREARM FLUSHED AND PATENT,SITE APPEARS HEALTHY;ALL SAFETY PRECAUTIONS REINOFORCED;PT ENCOURAGED TO EXPRESS NEEDS AND CONCERNS;CALL LIGHT IN REACH;WILL CONTINUE TO MONITOR
[2017-10-24 07:56] VITALS: BP 161/92
[2017-10-24 10:25] LABS: CHOLESTEROL HDL RATIO 5.9 (<4.4 (CALC))
--- NOTE | 2017-10-24 10:35 | NUR ---
PT COMPLAINS OF HEADACHE PAIN RATING 8/10 ON THE PAIN SCALE AND REQUESTS PAIN MEDICATION;PT MEDICATED WITH ULTRAM 50MG PO;COOL CLOTH PROVIDED;WILL MONITOR FOR EFFECTIVENESS
[2017-10-24 10:43] VITALS: BP 132/85
--- NOTE | 2017-10-24 11:38 | NUR ---
PT RESTING IN SUPINE POSITION;PT REPORTS A DECREASE IN HEADACHE PAIN NOW RATING 2/10 ON THE PAIN SCALE;TELE MONITOR IN PLACE;PT DENIES ANY CURRENT NEEDS;ENCOURAGED TO CALL FOR ASSISTANCE IF NEEDED;CALL LIGHT WITHIN REACH;WILL CONTINUE TO MONITOR
[2017-10-24] MEDS ORDERED: LIPITOR20 MG PO (12:25)
--- NOTE | 2017-10-24 13:10 | NUR ---
ALL DISCHARGE INFORMATION GIVEN AND QUESTIONS ANSWERED;IV SITE REMOVED WITH CATHETER INTACT;PT AWAITING RIDE HOME FROM HER ;WILL CONTINUE TO MONITOR
--- NOTE | 2017-10-24 13:15 | NUR ---
Discharge instructions given. Patient verbalizes understanding of same. Discharged in stable condition via Ambulatory to Home with significant other. All belongings sent with pt.
== END 2017-10-24 13:15 | disposition home or self-care (01) | DRG 313 ==
LOC: ED 17:29 → ED-I 18:47 → ED 19:00 → MS2 19:01
PROVIDERS: Family Medicine; Internal Medicine; Nurse Practitioner Family; ADMIT Internal Medicine; ATTEND Internal Medicine
DX: R07.2 Precordial pain (principal); J43.9 Emphysema, unspecified; Z68.41 Body mass index [BMI] 40.0-44.9, adult; E11.9 Type 2 diabetes mellitus without complications; I10 Essential (primary) hypertension; E78.5 Hyperlipidemia, unspecified; M19.90 Unspecified osteoarthritis, unspecified site; F31.9 Bipolar disorder, unspecified; F17.210 Nicotine dependence, cigarettes, uncomplicated; E66.9 Obesity, unspecified; Z91.14 Patient's other noncompliance with medication regimen
CPT/HCPCS: G0378

== ENCOUNTER 2017-10-31 10:13 | Emergency (ER) | payer OTHER ==
[~2017-10-31] VITALS: Ht 154.9 cm; Wt 103.0 kg
[~2017-10-31 10:13] MED LIST changes: +LIPITOR20 MG PO
[2017-10-31 11:14] LABS: HEMATOCRIT 37.7 % (37.0-47.0); HEMOGLOBIN 12.4 g/dl (12.0-16.0); IMMATURE GRANULOCYTES 0.9 % (0.0-1.0); MEAN CELL VOLUME 82.9 fL CALC (80.0-100.0); MEAN CORPUSCULAR HGB 27.3 pG CALC (26.0-32.0); MEAN CORPUSCULAR HGB CONC 32.9 g/L CALC (32.0-36.0); NEUT# 10.63 thou/uL (2.00-7.15); RED BLOOD COUNT 4.55 mill/uL (4.20-5.60); RED CELL DISTRI WIDTH 13.9 % (11.5-15.5)
[2017-10-31 11:18] LABS: ANION GAP 20 (6-22 (CALC)); BUN 13 mg/dL (7-17); BUN/CREATININE RATIO 18 (12-20 (CALC)); CARBON DIOXIDE 21 mmol/l (22-30); CHLORIDE 103 mmol/l (95-108); CREATININE 0.7 mg/dL (0.5-1.0); GFR > 60 ML/MIN (>=60 (CALC)); GFR FOR AFR.AMER. > 60 ML/MIN (>=60 (CALC)); POTASSIUM 3.8 mmol/l (3.5-5.1); SODIUM 139 mmol/l (137-146)
[2017-10-31 15:10] VITALS: BP 154/98
== END 2017-10-31 15:17 | disposition home or self-care (01) | DRG 313 ==
LOC: ED 10:13
PROVIDERS: Family Medicine
DX: R07.89 Other chest pain (principal); F17.210 Nicotine dependence, cigarettes, uncomplicated; I10 Essential (primary) hypertension; R06.02 Shortness of breath; R51 Headache; R42 Dizziness and giddiness; R20.2 Paresthesia of skin

== ENCOUNTER 2017-11-27 16:16 | Emergency (ER) | payer OTHER ==
[~2017-11-27] VITALS: Ht 154.9 cm; Wt 110.0 kg
[2017-11-27 16:50] LABS: HEMATOCRIT 39.7 % (37.0-47.0); HEMOGLOBIN 13.3 g/dl (12.0-16.0); IMMATURE GRANULOCYTES 0.8 % (0.0-1.0); MEAN CELL VOLUME 81.4 fL CALC (80.0-100.0); MEAN CORPUSCULAR HGB 27.3 pG CALC (26.0-32.0); MEAN CORPUSCULAR HGB CONC 33.5 g/L CALC (32.0-36.0); NEUT# 8.43 thou/uL (2.00-7.15); RED BLOOD COUNT 4.88 mill/uL (4.20-5.60); RED CELL DISTRI WIDTH 14.6 % (11.5-15.5)
[2017-11-27 17:02] LABS: ANION GAP 18 (6-22 (CALC)); BUN 12 mg/dL (7-17); BUN/CREATININE RATIO 19 (12-20 (CALC)); CARBON DIOXIDE 25 mmol/l (22-30); CHLORIDE 98 mmol/l (95-108); CREATININE 0.7 mg/dL (0.5-1.0); GFR > 60 ML/MIN (>=60 (CALC)); GFR FOR AFR.AMER. > 60 ML/MIN (>=60 (CALC)); POTASSIUM 3.8 mmol/l (3.5-5.1); SODIUM 138 mmol/l (137-146)
[2017-11-27 19:51] VITALS: BP 139/82
[2017-11-27] MEDS ORDERED: NAPROSYN500 MG PO (19:57)
== END 2017-11-27 20:11 | disposition home or self-care (01) | DRG 313 ==
LOC: ED 16:16
PROVIDERS: Family Medicine
DX: R07.89 Other chest pain (principal); F17.200 Nicotine dependence, unspecified, uncomplicated; I10 Essential (primary) hypertension; R06.02 Shortness of breath; R11.0 Nausea; Z91.19 Patient's noncompliance with other medical treatment and regimen

== ENCOUNTER 2019-05-19 19:39 | Emergency (ER) | payer OTHER ==
[~2019-05-19] VITALS: Ht 154.9 cm; Wt 100.0 kg
[2019-05-19] MEDS ORDERED: TORADOL PO (21:41)
[2019-05-19 21:55] VITALS: BP 152/91
== END 2019-05-19 21:55 | disposition home or self-care (01) ==
LOC: ED 19:39
DX: S90.31XA Contusion of right foot, initial encounter (principal); E11.9 Type 2 diabetes mellitus without complications; I10 Essential (primary) hypertension; J43.9 Emphysema, unspecified; F17.210 Nicotine dependence, cigarettes, uncomplicated; W20.8XXA Other cause of strike by thrown, projected or falling object, initial encounter; Y93.89 Activity, other specified; Y92.009 Unspecified place in unspecified non-institutional (private) residence as the place of occurrence of the external cause

== ENCOUNTER 2019-06-04 14:50 | Emergency (ER) | payer OTHER ==
[~2019-06-04] VITALS: Ht 154.9 cm; Wt 100.0 kg
[~2019-06-04 14:50] MED LIST changes: +TORADOL PO
[2019-06-04 16:47] LABS: HEMATOCRIT 40.8 % (37.0-47.0); IMMATURE GRANULOCYTES 0.4 % (0.0-5.0); MEAN CELL VOLUME 81.9 fL CALC (80.0-100.0); MEAN CORPUSCULAR HGB 28.1 pG CALC (26.0-32.0); MEAN CORPUSCULAR HGB CONC 34.3 g/L CALC (32.0-36.0); NEUT# 7.66 thou/uL (2.00-7.15); RED BLOOD COUNT 4.98 mill/uL (4.20-5.60); RED CELL DISTRI WIDTH 13.4 % (11.5-15.5)
[2019-06-04 16:57] LABS: ALBUMIN 3.8 g/dL (3.2-5.0); BILIRUBIN, TOTAL 0.3 mg/dL (0.0-1.4); BUN 5 mg/dL (7-17); BUN/CREATININE RATIO 9 (12-20 (CALC)); CARBON DIOXIDE 27 mmol/l (22-30); CHLORIDE 96 mmol/l (95-108); CREATININE 0.5 mg/dL (0.5-1.0); GFR > 60 ML/MIN (>=60 (CALC)); GFR FOR AFR.AMER. > 60 ML/MIN (>=60 (CALC)); LIPASE 186 u/l (23-300); TOTAL PROTEIN 7.6 g/dL (6.3-8.2)
[2019-06-04 16:58] LABS: ALKALINE PHOSPHATASE 177 u/l (38-126); ANION GAP 13 (6-22 (CALC)); POTASSIUM 3.2 mmol/l (3.5-5.1); SGOT/AST 40 u/l (14-36); SODIUM 133 mmol/l (137-146)
[2019-06-04 17:30] VITALS: BP 141/63
[2019-06-04] MEDS ORDERED: LEVEMIR100 UNIT/M SC (17:33)
== END 2019-06-04 18:07 | disposition left against medical advice (07) ==
LOC: ED 14:50 → ED-I 17:25 → ED 18:07
PROVIDERS: Family Medicine
DX: R07.89 Other chest pain (principal); E11.65 Type 2 diabetes mellitus with hyperglycemia; J43.9 Emphysema, unspecified; I10 Essential (primary) hypertension; F17.210 Nicotine dependence, cigarettes, uncomplicated; Z79.4 Long term (current) use of insulin; Z79.84 Long term (current) use of oral hypoglycemic drugs; Z79.899 Other long term (current) drug therapy; R11.0 Nausea; R06.02 Shortness of breath; Z91.19 Patient's noncompliance with other medical treatment and regimen

== ENCOUNTER 2019-06-06 15:04 | Emergency (ER) | payer OTHER ==
[~2019-06-06] VITALS: Ht 154.9 cm; Wt 107.7 kg
[~2019-06-06 15:04] MED LIST changes: +LEVEMIR100 UNIT/M SC
[2019-06-06] MEDS ORDERED: AMBIEN5 MG PO (15:38)
[2019-06-06] MEDS ORDERED: VENLAFAXINE37.5 M1 PO (15:39)
[2019-06-06 15:40] LABS: IMMATURE GRANULOCYTES 0.5 % (0.0-5.0); MEAN CELL VOLUME 83.6 fL CALC (80.0-100.0); MEAN CORPUSCULAR HGB 27.9 pG CALC (26.0-32.0); MEAN CORPUSCULAR HGB CONC 33.3 g/L CALC (32.0-36.0); NEUT# 8.13 thou/uL (2.00-7.15); RED BLOOD COUNT 5.38 mill/uL (4.20-5.60); RED CELL DISTRI WIDTH 13.6 % (11.5-15.5)
[2019-06-06] MEDS ORDERED: XANAX XR0.5 MG PO (15:41)
[2019-06-06] MEDS ORDERED: AMARYL1 MG PO (15:42)
[2019-06-06] MEDS ORDERED: TRICOR145 MG PO (15:42)
[2019-06-06] MEDS ORDERED: HYDROCHLOROT12.5 M1 PO (15:43)
[2019-06-06] MEDS ORDERED: BENZTROPINE1 MG PO (15:43)
[2019-06-06] MEDS ORDERED: TRILEPTAL300 M1 PO (15:44)
[2019-06-06 15:57] LABS: ANION GAP 17 (6-22 (CALC)); BUN 8 mg/dL (7-17); BUN/CREATININE RATIO 14 (12-20 (CALC)); CARBON DIOXIDE 26 mmol/l (22-30); CHLORIDE 94 mmol/l (95-108); CREATININE 0.6 mg/dL (0.5-1.0); GFR > 60 ML/MIN (>=60 (CALC)); GFR FOR AFR.AMER. > 60 ML/MIN (>=60 (CALC)); POTASSIUM 3.5 mmol/l (3.5-5.1); SODIUM 133 mmol/l (137-146)
[2019-06-06 17:47] LABS: URINE BILIRUBIN - DIPSTICK NEGATIVE (NEGATIVE); URINE BLOOD DIPSTICK NEGATIVE (NEGATIVE); URINE COLOR YELLOW; URINE GLUCOSE - DIPSTICK >=1000 mg/dL (NEGATIVE); URINE KETONE NEGATIVE (NEGATIVE); URINE LEUK ESTERASE TRACE (NEGATIVE); URINE NITRITE - DIPSTICK NEGATIVE (Negative); URINE PH 6.5 (4.5-8.0); URINE PROTEIN - DIPSTICK NEGATIVE (NEG-TRACE); URINE UROBILINOGEN - DIPSTICK 0.2 E.U./dL (0.2)
[2019-06-06 18:09] VITALS: BP 140/72
== END 2019-06-06 18:09 | disposition home or self-care (01) ==
LOC: ED 15:04
PROVIDERS: Family Medicine
DX: E11.65 Type 2 diabetes mellitus with hyperglycemia (principal); J43.9 Emphysema, unspecified; I10 Essential (primary) hypertension; R11.0 Nausea; F17.210 Nicotine dependence, cigarettes, uncomplicated; H53.8 Other visual disturbances

== ENCOUNTER 2019-10-09 23:20 | Emergency (ER) | payer OTHER ==
[~2019-10-09 23:20] MED LIST changes: +AMARYL1 MG PO; +AMBIEN5 MG PO; +BENZTROPINE1 MG PO; +HYDROCHLOROT12.5 M1 PO; +TRICOR145 MG PO; +TRILEPTAL300 M1 PO; +VENLAFAXINE37.5 M1 PO; +XANAX XR0.5 MG PO
[2019-10-09 23:28] VITALS: BP 156/113
== END 2019-10-10 00:03 | disposition left against medical advice (07) | DRG 951 ==
LOC: ED 23:20 → LWOBS 10-10 00:03
DX: Z53.21 Procedure and treatment not carried out due to patient leaving prior to being seen by health care provider (principal)

== ENCOUNTER 2019-10-20 | Emergency (ER) | payer OTHER ==
[2019-10-20] MEDS ORDERED: FAMCICLOVIR250 MG PO (23:43)
[2019-10-20] MEDS ORDERED: HYDROCO/APAP1 TA9 PO (23:43)
[2019-10-20] MEDS ORDERED: DIFLUCAN150 MG PO ×2 (23:45)
== END 2019-10-20 23:57 | disposition home or self-care (01) ==
DX: A60.00 Herpesviral infection of urogenital system, unspecified (principal); B37.3 Candidiasis of vulva and vagina; E11.9 Type 2 diabetes mellitus without complications; I10 Essential (primary) hypertension; J43.9 Emphysema, unspecified; Z79.4 Long term (current) use of insulin; F17.200 Nicotine dependence, unspecified, uncomplicated

== ENCOUNTER 2020-02-04 11:29 | Emergency (ER) | payer OTHER ==
[~2020-02-04] VITALS: Ht 154.9 cm; Wt 90.9 kg
[~2020-02-04 11:29] MED LIST changes: +DIFLUCAN150 MG PO; +FAMCICLOVIR250 MG PO; +HYDROCO/APAP1 TA9 PO
[2020-02-04 13:02] LABS: HEMATOCRIT 43.7 % (37.0-47.0); HEMOGLOBIN 14.4 g/dl (12.0-16.0); IMMATURE GRANULOCYTES 0.7 % (0.0-5.0); MEAN CELL VOLUME 84.7 fL CALC (80.0-100.0); MEAN CORPUSCULAR HGB 27.9 pG CALC (26.0-32.0); NEUT# 7.27 thou/uL (2.00-7.15); RED BLOOD COUNT 5.16 mill/uL (4.20-5.60); RED CELL DISTRI WIDTH 12.8 % (11.5-15.5)
[2020-02-04 13:23] LABS: ALBUMIN 4.2 g/dL (3.2-5.0); ALKALINE PHOSPHATASE 122 u/l (38-126); ANION GAP 13 (6-22 (CALC)); BILIRUBIN, TOTAL 0.3 mg/dL (0.0-1.4); BUN 10 mg/dL (7-17); BUN/CREATININE RATIO 15 (12-20 (CALC)); CARBON DIOXIDE 25 mmol/l (22-30); CHLORIDE 97 mmol/l (95-108); CREATININE 0.7 mg/dL (0.5-1.0); GFR > 60 ML/MIN (>=60 (CALC)); GFR FOR AFR.AMER. > 60 ML/MIN (>=60 (CALC)); POTASSIUM 3.2 mmol/l (3.5-5.1); SGOT/AST 23 u/l (14-36); SODIUM 132 mmol/l (137-146); TOTAL PROTEIN 7.8 g/dL (6.3-8.2)
[2020-02-04 14:42] LABS: URINE BILIRUBIN - DIPSTICK NEGATIVE (NEGATIVE); URINE BLOOD DIPSTICK NEGATIVE (NEGATIVE); URINE COLOR YELLOW; URINE GLUCOSE - DIPSTICK >=1000 mg/dL (NEGATIVE); URINE KETONE NEGATIVE (NEGATIVE); URINE LEUK ESTERASE TRACE (NEGATIVE); URINE NITRITE - DIPSTICK NEGATIVE (Negative); URINE PH 6.5 (4.5-8.0); URINE PROTEIN - DIPSTICK NEGATIVE (NEG-TRACE); URINE UROBILINOGEN - DIPSTICK 0.2 E.U./dL (0.2)
[2020-02-04] MEDS ORDERED: MONISTAT VA ×2 (16:01)
[2020-02-04 16:22] VITALS: BP 142/80
[2020-02-05] MEDS ORDERED: BACTRIM DS1 TAB PO ×2 (16:18)
[2020-02-05] MEDS ORDERED: CEPHALEXIN500 M1 PO (16:18)
[2020-02-05] MEDS ORDERED: DIFLUCAN150 MG PO ×2 (16:18)
[2020-02-05] MEDS ORDERED: HYDROCO/APAP1 TA9 PO ×2 (16:19)
== END 2020-02-04 16:34 | disposition home or self-care (01) ==
LOC: ED 11:29
DX: E11.65 Type 2 diabetes mellitus with hyperglycemia (principal); B37.3 Candidiasis of vulva and vagina; I10 Essential (primary) hypertension; J43.9 Emphysema, unspecified; F17.210 Nicotine dependence, cigarettes, uncomplicated; Z79.4 Long term (current) use of insulin

== ENCOUNTER 2020-02-05 15:52 | Emergency (ER) | payer OTHER ==
[~2020-02-05] VITALS: Ht 154.9 cm; Wt 90.1 kg
[~2020-02-05 15:52] MED LIST changes: +MONISTAT VA
[2020-02-05] MEDS ORDERED: DIFLUCAN150 MG PO ×2 (16:18)
[2020-02-05] MEDS ORDERED: CEPHALEXIN500 M1 PO (16:18)
[2020-02-05] MEDS ORDERED: BACTRIM DS1 TAB PO ×2 (16:18)
[2020-02-05] MEDS ORDERED: HYDROCO/APAP1 TA9 PO ×2 (16:19)
[2020-02-05 17:05] VITALS: BP 163/87
== END 2020-02-05 17:05 | disposition home or self-care (01) ==
LOC: ED 15:52
DX: N76.2 Acute vulvitis (principal); I10 Essential (primary) hypertension; E11.9 Type 2 diabetes mellitus without complications; J43.9 Emphysema, unspecified; F17.210 Nicotine dependence, cigarettes, uncomplicated; Z79.4 Long term (current) use of insulin

== ENCOUNTER 2020-04-29 15:23 | Emergency (ER) | payer OTHER ==
[~2020-04-29] VITALS: Ht 154.9 cm; Wt 86.3 kg
[~2020-04-29 15:23] MED LIST changes: +CEPHALEXIN500 M1 PO
[2020-04-29 16:02] LABS: HEMATOCRIT 45.3 % (37.0-47.0); HEMOGLOBIN 15.2 g/dl (12.0-16.0); IMMATURE GRANULOCYTES 0.4 % (0.0-5.0); MEAN CELL VOLUME 82.8 fL CALC (80.0-100.0); MEAN CORPUSCULAR HGB 27.8 pG CALC (26.0-32.0); MEAN CORPUSCULAR HGB CONC 33.6 g/dL CAL (32.0-36.0); NEUT# 7.41 thou/uL (2.00-7.15); RED BLOOD COUNT 5.47 mill/uL (4.20-5.60); RED CELL DISTRI WIDTH 12.8 % (11.5-15.5)
[2020-04-29 16:20] LABS: ALBUMIN 3.7 g/dL (3.2-5.0); ALKALINE PHOSPHATASE 127 u/l (38-126); ANION GAP 15 (6-22 (CALC)); BILIRUBIN, TOTAL 0.4 mg/dL (0.0-1.4); BUN 11 mg/dL (7-17); BUN/CREATININE RATIO 17 (12-20 (CALC)); CARBON DIOXIDE 21 mmol/l (22-30); CHLORIDE 101 mmol/l (95-108); CREATININE 0.7 mg/dL (0.5-1.0); GFR > 60 ML/MIN (>=60 (CALC)); GFR FOR AFR.AMER. > 60 ML/MIN (>=60 (CALC)); LIPASE 148 u/l (23-300); SGOT/AST 20 u/l (14-36); SODIUM 133 mmol/l (137-146)
[2020-04-29 16:21] LABS: POTASSIUM 4.1 mmol/l (3.5-5.1)
[2020-04-29] MEDS ORDERED: NOVOLIN 70/30 SC (16:49)
[2020-04-29 17:05] LABS: URINE BILIRUBIN - DIPSTICK NEGATIVE (NEGATIVE); URINE BLOOD DIPSTICK MODERATE (NEGATIVE); URINE COLOR YELLOW; URINE GLUCOSE - DIPSTICK >=1000 mg/dL (NEGATIVE); URINE KETONE NEGATIVE (NEGATIVE); URINE LEUK ESTERASE NEGATIVE (NEGATIVE); URINE NITRITE - DIPSTICK NEGATIVE (Negative); URINE PH 5.5 (4.5-8.0); URINE PROTEIN - DIPSTICK NEGATIVE (NEG-TRACE); URINE SPECIFIC GRAVITY 1.015; URINE UROBILINOGEN - DIPSTICK 0.2 E.U./dL (0.2)
[2020-04-29 17:10] LABS: URINE SQUAMOUS EPITHELIAL CELL FEW EPI/hpf (0-FEW); URINE WBC 0-2 WBC/hpf (0-5)
[2020-04-29] MEDS ORDERED: ZOFRAN4 MG/TAB PO (18:46)
[2020-04-29] MEDS ORDERED: DICYCLOMINE20 MG PO (18:46)
[2020-04-29] MEDS ORDERED: ACID REDUCER20 MG PO (18:46)
[2020-04-29 19:15] VITALS: BP 127/88
== END 2020-04-29 19:15 | disposition home or self-care (01) ==
LOC: ED 15:23
PROVIDERS: Student in an Organized Health Care Education/Training Program
DX: R10.13 Epigastric pain (principal); R11.2 Nausea with vomiting, unspecified; E11.65 Type 2 diabetes mellitus with hyperglycemia; I10 Essential (primary) hypertension; J43.9 Emphysema, unspecified; F17.210 Nicotine dependence, cigarettes, uncomplicated; Z79.4 Long term (current) use of insulin
CPT/HCPCS: Q9967

== ENCOUNTER 2020-08-06 12:18 | Emergency (ER) | payer OTHER ==
[~2020-08-06] VITALS: Ht 154.9 cm; Wt 83.0 kg
[~2020-08-06 12:18] MED LIST changes: +ACID REDUCER20 MG PO; +DICYCLOMINE20 MG PO; +NOVOLIN 70/30 SC; +ZOFRAN4 MG/TAB PO
[2020-08-06 13:02] LABS: HEMATOCRIT 46.8 % (37.0-47.0); HEMOGLOBIN 15.5 g/dl (12.0-16.0); IMMATURE GRANULOCYTES 0.4 % (0.0-5.0); MEAN CELL VOLUME 82.5 fL CALC (80.0-100.0); MEAN CORPUSCULAR HGB 27.3 pG CALC (26.0-32.0); MEAN CORPUSCULAR HGB CONC 33.1 g/dL CAL (32.0-36.0); NEUT# 7.34 thou/uL (2.00-7.15); RED BLOOD COUNT 5.67 mill/uL (4.20-5.60); RED CELL DISTRI WIDTH 12.5 % (11.5-15.5)
[2020-08-06 13:07] LABS: URINE BILIRUBIN - DIPSTICK NEGATIVE (NEGATIVE); URINE BLOOD DIPSTICK NEGATIVE (NEGATIVE); URINE COLOR YELLOW; URINE GLUCOSE - DIPSTICK >=1000 mg/dL (NEGATIVE); URINE KETONE 15 mg/dL (NEGATIVE); URINE LEUK ESTERASE NEGATIVE (NEGATIVE); URINE NITRITE - DIPSTICK NEGATIVE (Negative); URINE PROTEIN - DIPSTICK NEGATIVE (NEG-TRACE); URINE SPECIFIC GRAVITY 1.015
[2020-08-06 13:26] LABS: ALBUMIN 3.8 g/dL (3.2-5.0); ALKALINE PHOSPHATASE 123 u/l (38-126); ANION GAP 15 (6-22 (CALC)); BILIRUBIN, TOTAL 0.5 mg/dL (0.0-1.4); BUN 12 mg/dL (7-17); BUN/CREATININE RATIO 23 (12-20 (CALC)); CARBON DIOXIDE 21 mmol/l (22-30); CHLORIDE 101 mmol/l (95-108); CREATININE 0.5 mg/dL (0.5-1.0); GFR > 60 ML/MIN (>=60 (CALC)); GFR FOR AFR.AMER. > 60 ML/MIN (>=60 (CALC)); SGOT/AST 22 u/l (14-36); SODIUM 133 mmol/l (137-146); TOTAL PROTEIN 7.4 g/dL (6.3-8.2)
[2020-08-06] MEDS ORDERED: PREDNISONE20 MG PO (15:00)
[2020-08-06] MEDS ORDERED: VENTOLIN HFA IN (15:00)
[2020-08-06 15:07] VITALS: BP 161/87
== END 2020-08-06 15:48 | disposition home or self-care (01) ==
LOC: ED 12:18
PROVIDERS: Student in an Organized Health Care Education/Training Program
DX: J40 Bronchitis, not specified as acute or chronic (principal); M70.21 Olecranon bursitis, right elbow; J43.9 Emphysema, unspecified; E11.9 Type 2 diabetes mellitus without complications; I10 Essential (primary) hypertension; E78.5 Hyperlipidemia, unspecified; F31.9 Bipolar disorder, unspecified; F17.200 Nicotine dependence, unspecified, uncomplicated; Z79.4 Long term (current) use of insulin; Z20.822 Contact with and (suspected) exposure to COVID-19

== ENCOUNTER 2020-09-29 19:12 | Emergency (ER) | payer OTHER ==
[~2020-09-29] VITALS: Ht 154.9 cm; Wt 90.0 kg
[~2020-09-29 19:12] MED LIST changes: +PREDNISONE20 MG PO; +VENTOLIN HFA IN
[2020-09-29 19:21] VITALS: BP 174/95
[2020-09-29 20:14] LABS: HEMATOCRIT 49.6 % (37.0-47.0); HEMOGLOBIN 15.9 g/dl (12.0-16.0); IMMATURE GRANULOCYTES 0.5 % (0.0-5.0); MEAN CELL VOLUME 85.1 fL CALC (80.0-100.0); MEAN CORPUSCULAR HGB 27.3 pG CALC (26.0-32.0); MEAN CORPUSCULAR HGB CONC 32.1 g/dL CAL (32.0-36.0); NEUT# 6.87 thou/uL (2.00-7.15); RED BLOOD COUNT 5.83 mill/uL (4.20-5.60)
[2020-09-29 20:16] LABS: URINE BILIRUBIN - DIPSTICK NEGATIVE (NEGATIVE); URINE BLOOD DIPSTICK SMALL (NEGATIVE); URINE COLOR YELLOW; URINE GLUCOSE - DIPSTICK NEGATIVE (NEGATIVE); URINE KETONE NEGATIVE (NEGATIVE); URINE LEUK ESTERASE NEGATIVE (NEGATIVE); URINE NITRITE - DIPSTICK NEGATIVE (Negative); URINE PROTEIN - DIPSTICK NEGATIVE (NEG-TRACE); URINE UROBILINOGEN - DIPSTICK 0.2 E.U./dL (0.2)
[2020-09-29 20:25] LABS: URINE SQUAMOUS EPITHELIAL CELL FEW EPI/hpf (0-FEW); URINE WBC 0-2 WBC/hpf (0-5)
[2020-09-29 20:29] LABS: ALBUMIN 4.4 g/dL (3.2-5.0); ALKALINE PHOSPHATASE 131 u/l (38-126); AMYLASE 48 u/l (30-110); ANION GAP 18 (6-22 (CALC)); BUN 11 mg/dL (7-17); BUN/CREATININE RATIO 17 (12-20 (CALC)); CARBON DIOXIDE 22 mmol/l (22-30); CHLORIDE 95 mmol/l (95-108); CREATININE 0.6 mg/dL (0.5-1.0); ETHYL ALCOHOL 0 mg/dl (0-30); GFR > 60 ML/MIN (>=60 (CALC)); GFR FOR AFR.AMER. > 60 ML/MIN (>=60 (CALC)); LIPASE 127 u/l (23-300); POTASSIUM 3.9 mmol/l (3.5-5.1); SGOT/AST 33 u/l (14-36); SODIUM 132 mmol/l (137-146); TOTAL PROTEIN 8.3 g/dL (6.3-8.2)
[2020-09-29 20:33] LABS: BILIRUBIN, TOTAL 0.8 mg/dL (0.0-1.4)
[2020-09-29 20:41] LABS: ACT PARTIAL THROMBO TIME 22.3 SECONDS (20.0-32.5); PROTHROMBIN TIME 10.1 SECONDS (9.0-12.5)
[2020-09-30] MEDS ORDERED: NOVOLIN R100 UNIT/1 SC (23:06)
[2020-09-30] MEDS ORDERED: LISINOPRIL20 MG PO (23:07)
[2020-10-01] MEDS ORDERED: METFORMIN HCL1000 M1 PO (00:16)
[2020-10-01] MEDS ORDERED: LEVEMIR100 UNIT/M SC (00:16)
== END 2020-09-29 20:40 | disposition left against medical advice (07) ==
LOC: ED 19:12
DX: E11.10 Type 2 diabetes mellitus with ketoacidosis without coma (principal); K92.1 Melena; I10 Essential (primary) hypertension; J43.9 Emphysema, unspecified; E78.5 Hyperlipidemia, unspecified; F31.9 Bipolar disorder, unspecified; F17.200 Nicotine dependence, unspecified, uncomplicated; Z91.19 Patient's noncompliance with other medical treatment and regimen; Z79.4 Long term (current) use of insulin; Z20.822 Contact with and (suspected) exposure to COVID-19

== ENCOUNTER 2020-09-29 23:13 | Emergency (ER) | payer OTHER ==
[~2020-09-29] VITALS: Ht 154.9 cm; Wt 95.0 kg
[2020-09-30 01:37] LABS: HEMOGLOBIN 16.2 g/dl (12.0-16.0); IMMATURE GRANULOCYTES 0.6 % (0.0-5.0); MEAN CELL VOLUME 82.4 fL CALC (80.0-100.0); MEAN CORPUSCULAR HGB 27.2 pG CALC (26.0-32.0); MEAN CORPUSCULAR HGB CONC 33.1 g/dL CAL (32.0-36.0); NEUT# 8.03 thou/uL (2.00-7.15); RED BLOOD COUNT 5.95 mill/uL (4.20-5.60); RED CELL DISTRI WIDTH 12.9 % (11.5-15.5)
[2020-09-30 01:59] LABS: ALKALINE PHOSPHATASE 134 u/l (38-126); ANION GAP 13 (6-22 (CALC)); BILIRUBIN, TOTAL 0.5 mg/dL (0.0-1.4); BUN 10 mg/dL (7-17); BUN/CREATININE RATIO 18 (12-20 (CALC)); CARBON DIOXIDE 26 mmol/l (22-30); CHLORIDE 98 mmol/l (95-108); CREATININE 0.6 mg/dL (0.5-1.0); GFR > 60 ML/MIN (>=60 (CALC)); GFR FOR AFR.AMER. > 60 ML/MIN (>=60 (CALC)); POTASSIUM 3.9 mmol/l (3.5-5.1); SGOT/AST 25 u/l (14-36); SODIUM 133 mmol/l (137-146); TOTAL PROTEIN 7.3 g/dL (6.3-8.2)
[2020-09-30 03:54] VITALS: BP 154/76
[2020-09-30] MEDS ORDERED: NOVOLIN R100 UNIT/1 SC (23:06)
[2020-09-30] MEDS ORDERED: LISINOPRIL20 MG PO (23:07)
[2020-10-01] MEDS ORDERED: LEVEMIR100 UNIT/M SC (00:16)
[2020-10-01] MEDS ORDERED: METFORMIN HCL1000 M1 PO (00:16)
== END 2020-09-30 04:00 | disposition home or self-care (01) ==
LOC: ED 23:13
DX: E11.65 Type 2 diabetes mellitus with hyperglycemia (principal); J43.9 Emphysema, unspecified; E78.5 Hyperlipidemia, unspecified; F31.9 Bipolar disorder, unspecified; I10 Essential (primary) hypertension; F17.200 Nicotine dependence, unspecified, uncomplicated; Z79.4 Long term (current) use of insulin; F17.210 Nicotine dependence, cigarettes, uncomplicated

== ENCOUNTER 2020-10-02 07:24 | Emergency (ER) | payer OTHER ==
[~2020-10-02] VITALS: Ht 154.9 cm; Wt 86.0 kg
[~2020-10-02 07:24] MED LIST changes: +METFORMIN HCL1000 M1 PO; +NOVOLIN R100 UNIT/1 SC
[2020-10-02 08:18] LABS: HEMATOCRIT 42.8 % (37.0-47.0); HEMOGLOBIN 14.4 g/dl (12.0-16.0); IMMATURE GRANULOCYTES 0.8 % (0.0-5.0); MEAN CORPUSCULAR HGB 27.6 pG CALC (26.0-32.0); MEAN CORPUSCULAR HGB CONC 33.6 g/dL CAL (32.0-36.0); NEUT# 8.47 thou/uL (2.00-7.15); RED BLOOD COUNT 5.22 mill/uL (4.20-5.60)
[2020-10-02 08:20] LABS: URINE BILIRUBIN - DIPSTICK NEGATIVE (NEGATIVE); URINE BLOOD DIPSTICK NEGATIVE (NEGATIVE); URINE COLOR YELLOW; URINE GLUCOSE - DIPSTICK NEGATIVE (NEGATIVE); URINE KETONE NEGATIVE (NEGATIVE); URINE LEUK ESTERASE NEGATIVE (NEGATIVE); URINE NITRITE - DIPSTICK NEGATIVE (Negative); URINE PH 6.5 (4.5-8.0); URINE PROTEIN - DIPSTICK NEGATIVE (NEG-TRACE); URINE UROBILINOGEN - DIPSTICK 0.2 E.U./dL (0.2)
[2020-10-02 08:31] LABS: ALKALINE PHOSPHATASE 145 u/l (38-126); ANION GAP 14 (6-22 (CALC)); BILIRUBIN, TOTAL 0.5 mg/dL (0.0-1.4); BUN 8 mg/dL (7-17); BUN/CREATININE RATIO 15 (12-20 (CALC)); CARBON DIOXIDE 24 mmol/l (22-30); CHLORIDE 97 mmol/l (95-108); CREATININE 0.5 mg/dL (0.5-1.0); GFR > 60 ML/MIN (>=60 (CALC)); GFR FOR AFR.AMER. > 60 ML/MIN (>=60 (CALC)); POTASSIUM 3.6 mmol/l (3.5-5.1); SGOT/AST 22 u/l (14-36); SODIUM 131 mmol/l (137-146); TOTAL PROTEIN 7.1 g/dL (6.3-8.2)
[2020-10-02 09:45] VITALS: BP 143/83
== END 2020-10-02 10:07 | disposition home or self-care (01) ==
LOC: ED 07:24
PROVIDERS: Emergency Medicine
DX: E11.65 Type 2 diabetes mellitus with hyperglycemia (principal); I10 Essential (primary) hypertension; J43.9 Emphysema, unspecified; E78.5 Hyperlipidemia, unspecified; F31.9 Bipolar disorder, unspecified; F17.210 Nicotine dependence, cigarettes, uncomplicated; Z79.4 Long term (current) use of insulin

== ENCOUNTER 2020-10-16 21:47 | Emergency (ER) | payer OTHER ==
[~2020-10-16] VITALS: Ht 154.9 cm; Wt 86.0 kg
[2020-10-16 23:34] LABS: HEMATOCRIT 46.3 % (37.0-47.0); HEMOGLOBIN 15.4 g/dl (12.0-16.0); IMMATURE GRANULOCYTES 0.5 % (0.0-5.0); MEAN CELL VOLUME 82.8 fL CALC (80.0-100.0); MEAN CORPUSCULAR HGB 27.5 pG CALC (26.0-32.0); MEAN CORPUSCULAR HGB CONC 33.3 g/dL CAL (32.0-36.0); NEUT# 9.1 thou/uL (2.00-7.15); RED BLOOD COUNT 5.59 mill/uL (4.20-5.60); RED CELL DISTRI WIDTH 13.2 % (11.5-15.5)
[2020-10-16 23:52] LABS: ALBUMIN 3.7 g/dL (3.2-5.0); ALKALINE PHOSPHATASE 134 u/l (38-126); ANION GAP 14 (6-22 (CALC)); BILIRUBIN, TOTAL 0.5 mg/dL (0.0-1.4); BUN 12 mg/dL (7-17); BUN/CREATININE RATIO 21 (12-20 (CALC)); CARBON DIOXIDE 20 mmol/l (22-30); CHLORIDE 99 mmol/l (95-108); CREATININE 0.6 mg/dL (0.5-1.0); GFR > 60 ML/MIN (>=60 (CALC)); GFR FOR AFR.AMER. > 60 ML/MIN (>=60 (CALC)); POTASSIUM 3.7 mmol/l (3.5-5.1); SGOT/AST 19 u/l (14-36); SODIUM 130 mmol/l (137-146); TOTAL PROTEIN 7.4 g/dL (6.3-8.2)
[2020-10-17 01:30] VITALS: BP 143/86
== END 2020-10-17 01:46 | disposition left against medical advice (07) ==
LOC: ED 21:47 → ED-I 10-17 01:14 → ED 10-17 01:46
PROVIDERS: Emergency Medicine
DX: R07.9 Chest pain, unspecified (principal); E11.9 Type 2 diabetes mellitus without complications; I10 Essential (primary) hypertension; J43.9 Emphysema, unspecified; E78.5 Hyperlipidemia, unspecified; F31.9 Bipolar disorder, unspecified; F17.200 Nicotine dependence, unspecified, uncomplicated; Z91.19 Patient's noncompliance with other medical treatment and regimen

== ENCOUNTER 2020-12-31 18:03 | Emergency (ER) | payer OTHER ==
[~2020-12-31] VITALS: Ht 154.9 cm; Wt 90.9 kg
[2020-12-31] MEDS ORDERED: LISINOPRIL20 MG PO ×2 (18:37→19:52)
[2020-12-31] MEDS ORDERED: NOVOLOG MIX SC (18:38)
[2020-12-31 19:03] LABS: HEMATOCRIT 45.6 % (37.0-47.0); HEMOGLOBIN 15.6 g/dl (12.0-16.0); IMMATURE GRANULOCYTES 0.5 % (0.0-5.0); MEAN CORPUSCULAR HGB 27.7 pG CALC (26.0-32.0); MEAN CORPUSCULAR HGB CONC 34.2 g/dL CAL (32.0-36.0); NEUT# 6.1 thou/uL (2.00-7.15); RED BLOOD COUNT 5.63 mill/uL (4.20-5.60); RED CELL DISTRI WIDTH 12.1 % (11.5-15.5)
[2020-12-31 19:03] LABS: URINE BILIRUBIN - DIPSTICK NEGATIVE (NEGATIVE); URINE BLOOD DIPSTICK NEGATIVE (NEGATIVE); URINE COLOR YELLOW; URINE GLUCOSE - DIPSTICK >=1000 mg/dL (NEGATIVE); URINE KETONE NEGATIVE (NEGATIVE); URINE LEUK ESTERASE NEGATIVE (NEGATIVE); URINE PH 6.5 (4.5-8.0); URINE PROTEIN - DIPSTICK NEGATIVE (NEG-TRACE); URINE SPECIFIC GRAVITY 1.015; URINE UROBILINOGEN - DIPSTICK 0.2 E.U./dL (0.2)
[2020-12-31 19:06] LABS: URINE NITRITE - DIPSTICK NEGATIVE (Negative)
[2020-12-31 19:21] LABS: ALBUMIN 3.9 g/dL (3.2-5.0); ALKALINE PHOSPHATASE 130 u/l (38-126); BILIRUBIN, TOTAL 0.3 mg/dL (0.0-1.4); BUN 10 mg/dL (7-17); BUN/CREATININE RATIO 19 (12-20 (CALC)); CHLORIDE 95 mmol/l (95-108); CREATININE 0.6 mg/dL (0.5-1.0); GFR > 60 ML/MIN (>=60 (CALC)); GFR FOR AFR.AMER. > 60 ML/MIN (>=60 (CALC)); LIPASE 129 u/l (23-300); POTASSIUM 3.8 mmol/l (3.5-5.1); SODIUM 132 mmol/l (137-146); TOTAL PROTEIN 7.6 g/dL (6.3-8.2)
[2020-12-31 19:25] LABS: ANION GAP 14 (6-22 (CALC)); CARBON DIOXIDE 27 mmol/l (22-30); SGOT/AST 38 u/l (14-36)
[2020-12-31] MEDS ORDERED: INSULIN ASPART SC (19:52)
[2020-12-31] MEDS ORDERED: [UNRECOGNIZED DRUG - REMARK] SC (19:52)
[2020-12-31 20:16] VITALS: BP 167/72
== END 2020-12-31 20:39 | disposition home or self-care (01) ==
LOC: ED 18:03
PROVIDERS: Emergency Medicine
DX: B34.9 Viral infection, unspecified (principal); E11.65 Type 2 diabetes mellitus with hyperglycemia; I10 Essential (primary) hypertension; J43.9 Emphysema, unspecified; E78.5 Hyperlipidemia, unspecified; F31.9 Bipolar disorder, unspecified; T38.3X6A Underdosing of insulin and oral hypoglycemic [antidiabetic] drugs, initial encounter; T46.4X6A Underdosing of angiotensin-converting-enzyme inhibitors, initial encounter; Z91.128 Patient's intentional underdosing of medication regimen for other reason; F17.210 Nicotine dependence, cigarettes, uncomplicated; Z79.4 Long term (current) use of insulin; Z20.822 Contact with and (suspected) exposure to COVID-19

== ENCOUNTER 2021-02-20 03:41 | Inpatient (IN) | payer OTHER ==
[~2021-02-20] VITALS: Ht 152.4 cm; Wt 86.0 kg
[2021-02-20] VITALS (27 sets, daily range): BP systolic 78–125; BP diastolic 50–78
[~2021-02-20 03:41] MED LIST changes: +INSULIN ASPART SC; +NOVOLOG MIX SC; +[UNRECOGNIZED DRUG - REMARK] SC
[2021-02-20 04:05] LABS: HEMATOCRIT 40.1 % (37.0-47.0); IMMATURE GRANULOCYTES 3.7 % (0.0-5.0); MEAN CORPUSCULAR HGB 28.3 pG CALC (26.0-32.0); MEAN CORPUSCULAR HGB CONC 34.9 g/dL CAL (32.0-36.0); NEUT# 17.86 thou/uL (2.00-7.15); RED BLOOD COUNT 4.95 mill/uL (4.20-5.60); RED CELL DISTRI WIDTH 12.4 % (11.5-15.5)
[2021-02-20 04:21] LABS: ALBUMIN 3.5 g/dL (3.2-5.0); AMYLASE 33 u/l (30-110); BUN 18 mg/dL (7-17); BUN/CREATININE RATIO 12 (12-20 (CALC)); CHLORIDE 95 mmol/l (95-108); CREATININE 1.5 mg/dL (0.5-1.0); GFR 38 ML/MIN (>=60 (CALC)); GFR FOR AFR.AMER. 45 ML/MIN (>=60 (CALC)); LIPASE 33 u/l (23-300); SGOT/AST 29 u/l (14-36); SODIUM 131 mmol/l (137-146); TOTAL PROTEIN 7.2 g/dL (6.3-8.2)
[2021-02-20 04:37] LABS: ALKALINE PHOSPHATASE 254 u/l (38-126); ANION GAP 19 (6-22 (CALC)); BILIRUBIN, TOTAL 0.5 mg/dL (0.0-1.4); CARBON DIOXIDE 20 mmol/l (22-30); POTASSIUM 2.6 mmol/l (3.5-5.1)
[2021-02-20 07:27] LABS: URINE BILIRUBIN - DIPSTICK NEGATIVE (NEGATIVE); URINE BLOOD DIPSTICK TRACE-INTACT (NEGATIVE); URINE COLOR YELLOW; URINE GLUCOSE - DIPSTICK >=1000 mg/dL (NEGATIVE); URINE KETONE NEGATIVE (NEGATIVE); URINE LEUK ESTERASE NEGATIVE (NEGATIVE); URINE PH 6.5 (4.5-8.0); URINE PROTEIN - DIPSTICK NEGATIVE (NEG-TRACE); URINE SPECIFIC GRAVITY <=1.005; URINE UROBILINOGEN - DIPSTICK 0.2 E.U./dL (0.2)
[2021-02-20 07:36] LABS: URINE NITRITE - DIPSTICK NEGATIVE (Negative)
[2021-02-20 10:26] LABS: MEAN CELL VOLUME 80.3 fL CALC (80.0-100.0); MEAN CORPUSCULAR HGB 28.3 pG CALC (26.0-32.0); MEAN CORPUSCULAR HGB CONC 35.2 g/dL CAL (32.0-36.0); NEUT# 13.46 thou/uL (2.00-7.15); RED BLOOD COUNT 4.21 mill/uL (4.20-5.60); RED CELL DISTRI WIDTH 12.3 % (11.5-15.5)
[2021-02-20 10:45] LABS: HEMATOCRIT 33.8 % (37.0-47.0); HEMOGLOBIN 11.9 g/dl (12.0-16.0)
[2021-02-20 10:46] LABS: ANION GAP 11 (6-22 (CALC)); BUN 18 mg/dL (7-17); BUN/CREATININE RATIO 16 (12-20 (CALC)); CARBON DIOXIDE 24 mmol/l (22-30); CHLORIDE 104 mmol/l (95-108); CREATININE 1.1 mg/dL (0.5-1.0); GFR 54 ML/MIN (>=60 (CALC)); GFR FOR AFR.AMER. > 60 ML/MIN (>=60 (CALC)); SODIUM 136 mmol/l (137-146)
[2021-02-21] VITALS (18 sets, daily range): BP systolic 91–220; BP diastolic 52–96
[2021-02-21 05:15] LABS: HEMATOCRIT 34.8 % (37.0-47.0); HEMOGLOBIN 11.9 g/dl (12.0-16.0); MEAN CELL VOLUME 82.1 fL CALC (80.0-100.0); MEAN CORPUSCULAR HGB 28.1 pG CALC (26.0-32.0); MEAN CORPUSCULAR HGB CONC 34.2 g/dL CAL (32.0-36.0); RED BLOOD COUNT 4.24 mill/uL (4.20-5.60); RED CELL DISTRI WIDTH 13.1 % (11.5-15.5)
[2021-02-21 05:30] LABS: CREATININE 1.3 mg/dL (0.5-1.0); POTASSIUM 3.3 mmol/l (3.5-5.1)
[2021-02-22] VITALS (20 sets, daily range): BP systolic 107–165; BP diastolic 59–92
[2021-02-22 05:25] LABS: HEMATOCRIT 36.7 % (37.0-47.0); HEMOGLOBIN 12.2 g/dl (12.0-16.0); MEAN CELL VOLUME 83.8 fL CALC (80.0-100.0); MEAN CORPUSCULAR HGB 27.9 pG CALC (26.0-32.0); MEAN CORPUSCULAR HGB CONC 33.2 g/dL CAL (32.0-36.0); RED BLOOD COUNT 4.38 mill/uL (4.20-5.60); RED CELL DISTRI WIDTH 13.8 % (11.5-15.5)
[2021-02-22 05:41] LABS: ANION GAP 14 (6-22 (CALC)); BUN 27 mg/dL (7-17); BUN/CREATININE RATIO 26 (12-20 (CALC)); CARBON DIOXIDE 20 mmol/l (22-30); CHLORIDE 108 mmol/l (95-108); GFR 60 ML/MIN (>=60 (CALC)); GFR FOR AFR.AMER. > 60 ML/MIN (>=60 (CALC)); POTASSIUM 3.3 mmol/l (3.5-5.1); SODIUM 138 mmol/l (137-146)
[2021-02-23] VITALS (7 sets, daily range): BP systolic 142–169; BP diastolic 69–93
[2021-02-23 05:51] LABS: HEMATOCRIT 32.3 % (37.0-47.0); IMMATURE GRANULOCYTES 1.1 % (0.0-5.0); MEAN CELL VOLUME 82.4 fL CALC (80.0-100.0); MEAN CORPUSCULAR HGB 28.1 pG CALC (26.0-32.0); MEAN CORPUSCULAR HGB CONC 34.1 g/dL CAL (32.0-36.0); NEUT# 7.64 thou/uL (2.00-7.15); RED BLOOD COUNT 3.92 mill/uL (4.20-5.60); RED CELL DISTRI WIDTH 14.1 % (11.5-15.5)
[2021-02-23 05:58] LABS: ANION GAP 11 (6-22 (CALC)); BUN 23 mg/dL (7-17); BUN/CREATININE RATIO 28 (12-20 (CALC)); CARBON DIOXIDE 23 mmol/l (22-30); CHLORIDE 103 mmol/l (95-108); CREATININE 0.8 mg/dL (0.5-1.0); GFR > 60 ML/MIN (>=60 (CALC)); GFR FOR AFR.AMER. > 60 ML/MIN (>=60 (CALC)); POTASSIUM 2.9 mmol/l (3.5-5.1); SODIUM 134 mmol/l (137-146)
[2021-02-24] VITALS (14 sets, daily range): BP systolic 135–167; BP diastolic 72–94
[2021-02-24 06:26] LABS: HEMATOCRIT 31.7 % (37.0-47.0); HEMOGLOBIN 10.9 g/dl (12.0-16.0); IMMATURE GRANULOCYTES 1.4 % (0.0-5.0); MEAN CELL VOLUME 82.1 fL CALC (80.0-100.0); MEAN CORPUSCULAR HGB 28.2 pG CALC (26.0-32.0); MEAN CORPUSCULAR HGB CONC 34.4 g/dL CAL (32.0-36.0); NEUT# 6.66 thou/uL (2.00-7.15); RED BLOOD COUNT 3.86 mill/uL (4.20-5.60)
[2021-02-24 06:55] LABS: ANION GAP 10 (6-22 (CALC)); BUN 24 mg/dL (7-17); BUN/CREATININE RATIO 30 (12-20 (CALC)); CHLORIDE 95 mmol/l (95-108); CREATININE 0.8 mg/dL (0.5-1.0); GFR > 60 ML/MIN (>=60 (CALC)); GFR FOR AFR.AMER. > 60 ML/MIN (>=60 (CALC)); MAGNESIUM 1.6 mg/dL (1.6-2.3); POTASSIUM 2.9 mmol/l (3.5-5.1); SODIUM 134 mmol/l (137-146)
[2021-02-24 06:57] LABS: CARBON DIOXIDE 32 mmol/l (22-30)
[2021-02-25] VITALS (7 sets, daily range): BP systolic 139–164; BP diastolic 71–92
[2021-02-25 05:56] LABS: HEMATOCRIT 32.3 % (37.0-47.0); MEAN CELL VOLUME 82.2 fL CALC (80.0-100.0); MEAN CORPUSCULAR HGB CONC 34.1 g/dL CAL (32.0-36.0); NEUT# 8.2 thou/uL (2.00-7.15); RED BLOOD COUNT 3.93 mill/uL (4.20-5.60); RED CELL DISTRI WIDTH 13.7 % (11.5-15.5)
[2021-02-25 06:12] LABS: ANION GAP 10 (6-22 (CALC)); BUN 22 mg/dL (7-17); BUN/CREATININE RATIO 32 (12-20 (CALC)); CARBON DIOXIDE 34 mmol/l (22-30); CHLORIDE 93 mmol/l (95-108); CREATININE 0.7 mg/dL (0.5-1.0); GFR > 60 ML/MIN (>=60 (CALC)); GFR FOR AFR.AMER. > 60 ML/MIN (>=60 (CALC)); SGOT/AST 41 u/l (14-36); SODIUM 134 mmol/l (137-146)
[2021-02-25 06:13] LABS: ALBUMIN 2.3 g/dL (3.2-5.0); ALKALINE PHOSPHATASE 425 u/l (38-126); MAGNESIUM 2.1 mg/dL (1.6-2.3); TOTAL PROTEIN 5.4 g/dL (6.3-8.2)
[2021-02-26] VITALS: BP 144/82
[2021-02-26 04:00] VITALS: BP 154/86
[2021-02-26 07:41] VITALS: BP 151/84
[2021-02-26 07:48] LABS: HEMATOCRIT 32.3 % (37.0-47.0); HEMOGLOBIN 10.8 g/dl (12.0-16.0); IMMATURE GRANULOCYTES 4.3 % (0.0-5.0); MEAN CORPUSCULAR HGB 27.8 pG CALC (26.0-32.0); MEAN CORPUSCULAR HGB CONC 33.4 g/dL CAL (32.0-36.0); NEUT# 14.01 thou/uL (2.00-7.15); RED BLOOD COUNT 3.89 mill/uL (4.20-5.60); RED CELL DISTRI WIDTH 13.6 % (11.5-15.5)
[2021-02-26 08:16] LABS: ANION GAP 10 (6-22 (CALC)); BUN 15 mg/dL (7-17); BUN/CREATININE RATIO 26 (12-20 (CALC)); CARBON DIOXIDE 31 mmol/l (22-30); CHLORIDE 93 mmol/l (95-108); CREATININE 0.6 mg/dL (0.5-1.0); GFR > 60 ML/MIN (>=60 (CALC)); GFR FOR AFR.AMER. > 60 ML/MIN (>=60 (CALC)); POTASSIUM 2.9 mmol/l (3.5-5.1); SODIUM 131 mmol/l (137-146)
[2021-02-26 10:40] VITALS: BP 133/75
[2021-02-26 14:45] VITALS: BP 110/56
[2021-02-26 19:00] VITALS: BP 123/74
[2021-02-27 03:52] VITALS: BP 165/97
[2021-02-27 06:22] LABS: HEMATOCRIT 33.2 % (37.0-47.0); HEMOGLOBIN 10.9 g/dl (12.0-16.0); MEAN CELL VOLUME 84.7 fL CALC (80.0-100.0); MEAN CORPUSCULAR HGB 27.8 pG CALC (26.0-32.0); MEAN CORPUSCULAR HGB CONC 32.8 g/dL CAL (32.0-36.0); RED BLOOD COUNT 3.92 mill/uL (4.20-5.60); RED CELL DISTRI WIDTH 13.8 % (11.5-15.5)
[2021-02-27 06:32] LABS: ANION GAP 10 (6-22 (CALC)); BUN 16 mg/dL (7-17); BUN/CREATININE RATIO 30 (12-20 (CALC)); CARBON DIOXIDE 31 mmol/l (22-30); CHLORIDE 96 mmol/l (95-108); CREATININE 0.5 mg/dL (0.5-1.0); GFR > 60 ML/MIN (>=60 (CALC)); GFR FOR AFR.AMER. > 60 ML/MIN (>=60 (CALC)); POTASSIUM 4.4 mmol/l (3.5-5.1); SODIUM 133 mmol/l (137-146)
[2021-02-27 07:11] VITALS: BP 140/76
[2021-02-27 15:00] VITALS: BP 144/82
[2021-02-27 18:57] VITALS: BP 138/81
[2021-02-28 03:52] VITALS: BP 138/90
[2021-02-28 05:46] LABS: HEMATOCRIT 31.6 % (37.0-47.0); HEMOGLOBIN 10.3 g/dl (12.0-16.0); MEAN CELL VOLUME 86.3 fL CALC (80.0-100.0); MEAN CORPUSCULAR HGB 28.1 pG CALC (26.0-32.0); MEAN CORPUSCULAR HGB CONC 32.6 g/dL CAL (32.0-36.0); RED BLOOD COUNT 3.66 mill/uL (4.20-5.60); RED CELL DISTRI WIDTH 14.1 % (11.5-15.5)
[2021-02-28 05:58] LABS: ALBUMIN 2.6 g/dL (3.2-5.0); ALKALINE PHOSPHATASE 473 u/l (38-126); ANION GAP 11 (6-22 (CALC)); BUN 17 mg/dL (7-17); BUN/CREATININE RATIO 26 (12-20 (CALC)); CARBON DIOXIDE 27 mmol/l (22-30); CHLORIDE 99 mmol/l (95-108); CREATININE 0.6 mg/dL (0.5-1.0); GFR > 60 ML/MIN (>=60 (CALC)); GFR FOR AFR.AMER. > 60 ML/MIN (>=60 (CALC)); POTASSIUM 4.1 mmol/l (3.5-5.1); SGOT/AST 33 u/l (14-36); SODIUM 133 mmol/l (137-146); TOTAL PROTEIN 6.1 g/dL (6.3-8.2)
[2021-02-28 06:03] LABS: BILIRUBIN, TOTAL 0.8 mg/dL (0.0-1.4)
[2021-02-28 07:56] VITALS: BP 160/89
[2021-02-28 15:23] VITALS: BP 143/84
[2021-02-28 19:20] VITALS: BP 149/84
[2021-02-28 20:00] VITALS: BP 139/65
[2021-03-01 04:13] VITALS: BP 134/75
[2021-03-01 05:39] LABS: HEMOGLOBIN 10.3 g/dl (12.0-16.0); MEAN CELL VOLUME 86.7 fL CALC (80.0-100.0); MEAN CORPUSCULAR HGB 27.9 pG CALC (26.0-32.0); MEAN CORPUSCULAR HGB CONC 32.2 g/dL CAL (32.0-36.0); RED BLOOD COUNT 3.69 mill/uL (4.20-5.60); RED CELL DISTRI WIDTH 14.2 % (11.5-15.5)
[2021-03-01 05:53] LABS: ALBUMIN 2.6 g/dL (3.2-5.0); ALKALINE PHOSPHATASE 411 u/l (38-126); ANION GAP 11 (6-22 (CALC)); BILIRUBIN, TOTAL 0.8 mg/dL (0.0-1.4); BUN 11 mg/dL (7-17); BUN/CREATININE RATIO 17 (12-20 (CALC)); CARBON DIOXIDE 27 mmol/l (22-30); CHLORIDE 99 mmol/l (95-108); CREATININE 0.7 mg/dL (0.5-1.0); GFR > 60 ML/MIN (>=60 (CALC)); GFR FOR AFR.AMER. > 60 ML/MIN (>=60 (CALC)); POTASSIUM 4.3 mmol/l (3.5-5.1); SGOT/AST 20 u/l (14-36); SODIUM 132 mmol/l (137-146); TOTAL PROTEIN 6.2 g/dL (6.3-8.2)
[2021-03-01 07:15] VITALS: BP 140/71
[2021-03-01 15:37] VITALS: BP 120/65
[2021-03-01 19:08] VITALS: BP 135/77
[2021-03-02 05:00] VITALS: BP 130/74
[2021-03-02 05:33] LABS: HEMATOCRIT 32.4 % (37.0-47.0); HEMOGLOBIN 10.3 g/dl (12.0-16.0); MEAN CELL VOLUME 88.3 fL CALC (80.0-100.0); MEAN CORPUSCULAR HGB 28.1 pG CALC (26.0-32.0); MEAN CORPUSCULAR HGB CONC 31.8 g/dL CAL (32.0-36.0); RED BLOOD COUNT 3.67 mill/uL (4.20-5.60); RED CELL DISTRI WIDTH 14.3 % (11.5-15.5)
[2021-03-02 05:35] LABS: ANION GAP 11 (6-22 (CALC)); BUN 14 mg/dL (7-17); BUN/CREATININE RATIO 16 (12-20 (CALC)); CARBON DIOXIDE 25 mmol/l (22-30); CHLORIDE 100 mmol/l (95-108); CREATININE 0.8 mg/dL (0.5-1.0); GFR > 60 ML/MIN (>=60 (CALC)); GFR FOR AFR.AMER. > 60 ML/MIN (>=60 (CALC)); POTASSIUM 4.8 mmol/l (3.5-5.1); SODIUM 132 mmol/l (137-146)
[2021-03-02 07:27] VITALS: BP 139/90
[2021-03-02] MEDS ORDERED: LEVEMIR FL100 UNIT/M SC (13:08)
[2021-03-02] MEDS ORDERED: LISINOPRIL20 MG PO (13:09)
[2021-03-02] MEDS ORDERED: LEVOFLOXACIN750 MG PO (13:09)
[2021-03-02] MEDS ORDERED: HYDROCO/APAP1 TA9 PO (13:11)
== END 2021-03-02 15:01 | disposition home or self-care (01) | DRG 872 ==
LOC: ED 03:41 → ED-I 07:21 → ED 07:53 → ICU 07:54 → ED-I 08:35 → ICU 11:18 → MS2 02-24 18:13
PROVIDERS: Emergency Medicine; Nurse Practitioner; Nurse Practitioner Family; ADMIT Hospitalist; ATTEND Internal Medicine
DX: A41.51 Sepsis due to Escherichia coli [E. coli] (principal); N12 Tubulo-interstitial nephritis, not specified as acute or chronic; E87.2 Acidosis; N17.9 Acute kidney failure, unspecified; J81.1 Chronic pulmonary edema; R65.20 Severe sepsis without septic shock; E11.65 Type 2 diabetes mellitus with hyperglycemia; I10 Essential (primary) hypertension; E87.6 Hypokalemia; J43.9 Emphysema, unspecified; E78.5 Hyperlipidemia, unspecified; F31.9 Bipolar disorder, unspecified; I87.8 Other specified disorders of veins; E66.9 Obesity, unspecified; T38.3X6A Underdosing of insulin and oral hypoglycemic [antidiabetic] drugs, initial encounter; T46.5X6A Underdosing of other antihypertensive drugs, initial encounter; Z91.128 Patient's intentional underdosing of medication regimen for other reason; F17.200 Nicotine dependence, unspecified, uncomplicated; Z68.35 Body mass index [BMI] 35.0-35.9, adult; Z79.4 Long term (current) use of insulin; Z20.822 Contact with and (suspected) exposure to COVID-19
CPT/HCPCS: J3475; Q3014; Q9967

== ENCOUNTER 2021-05-19 18:53 | Observation (INO) | payer OTHER ==
[~2021-05-19] VITALS: Ht 154.9 cm; Wt 78.0 kg
[~2021-05-19 18:53] MED LIST changes: +LEVEMIR FL100 UNIT/M SC; +LEVOFLOXACIN750 MG PO
[2021-05-19 20:05] LABS: IMMATURE GRANULOCYTES 0.6 % (0.0-5.0); MEAN CELL VOLUME 84.3 fL CALC (80.0-100.0); MEAN CORPUSCULAR HGB 28.4 pG CALC (26.0-32.0); MEAN CORPUSCULAR HGB CONC 33.7 g/dL CAL (32.0-36.0); NEUT# 7.2 thou/uL (2.00-7.15); RED BLOOD COUNT 5.35 mill/uL (4.20-5.60)
[2021-05-19 20:10] LABS: HEMATOCRIT 45.1 % (37.0-47.0); HEMOGLOBIN 15.2 g/dl (12.0-16.0)
[2021-05-19 20:11] LABS: URINE BILIRUBIN - DIPSTICK NEGATIVE (NEGATIVE); URINE BLOOD DIPSTICK NEGATIVE (NEGATIVE); URINE COLOR YELLOW; URINE GLUCOSE - DIPSTICK >=1000 mg/dL (NEGATIVE); URINE KETONE NEGATIVE (NEGATIVE); URINE PH 6.5 (4.5-8.0); URINE PROTEIN - DIPSTICK NEGATIVE (NEG-TRACE); URINE UROBILINOGEN - DIPSTICK 0.2 E.U./dL (0.2)
[2021-05-19 20:12] LABS: URINE LEUK ESTERASE MODERATE (NEGATIVE); URINE NITRITE - DIPSTICK NEGATIVE (Negative)
[2021-05-19 20:13] LABS: HCG SERUM/URINE (NEG/POS) NEGATIVE (NEGATIVE)
[2021-05-19 20:18] LABS: URINE RBC 0-2 RBC/hpf (0-5); URINE SQUAMOUS EPITHELIAL CELL FEW EPI/hpf (0-FEW)
[2021-05-19 20:30] LABS: AMYLASE 63 u/l (30-110); ANION GAP 13 (6-22 (CALC)); BUN 15 mg/dL (7-17); BUN/CREATININE RATIO 22 (12-20 (CALC)); CARBON DIOXIDE 25 mmol/l (22-30); CHLORIDE 102 mmol/l (95-108); CREATININE 0.7 mg/dL (0.5-1.0); GFR > 60 ML/MIN (>=60 (CALC)); GFR FOR AFR.AMER. > 60 ML/MIN (>=60 (CALC)); LIPASE 63 u/l (23-300); SGOT/AST 29 u/l (14-36); SODIUM 136 mmol/l (137-146)
[2021-05-19 20:36] LABS: ACT PARTIAL THROMBO TIME 21.3 SECONDS (20.0-32.5); PROTHROMBIN TIME 10.2 SECONDS (9.0-12.5)
[2021-05-19 20:41] LABS: ALBUMIN 4.1 g/dL (3.2-5.0); ALKALINE PHOSPHATASE 79 u/l (38-126); BILIRUBIN, TOTAL 0.4 mg/dL (0.0-1.4); MYOGLOBIN 13 ng/mL (0 - 62); TOTAL PROTEIN 7.8 g/dL (6.3-8.2)
[2021-05-19 20:51] LABS: D-DIMER 0.17 mg/L (0.19-0.60)
[2021-05-19] MEDS ORDERED: FLUCONAZOLE100 MG PO (21:59)
[2021-05-19] MEDS ORDERED: AMOXICILLIN250 M1 PO (22:05)
[2021-05-19] MEDS ORDERED: HUMULIN N100 UNIT/M (22:06)
[2021-05-19] MEDS ORDERED: LANTUS100 UNIT SC (22:07)
[2021-05-19 22:28] VITALS: BP 161/90
[2021-05-19 23:47] VITALS: BP 119/62
[2021-05-20 04:00] VITALS: BP 119/63
[2021-05-20 05:42] LABS: HEMATOCRIT 40.3 % (37.0-47.0); HEMOGLOBIN 13.6 g/dl (12.0-16.0); IMMATURE GRANULOCYTES 0.3 % (0.0-5.0); MEAN CELL VOLUME 85.4 fL CALC (80.0-100.0); MEAN CORPUSCULAR HGB 28.8 pG CALC (26.0-32.0); MEAN CORPUSCULAR HGB CONC 33.7 g/dL CAL (32.0-36.0); NEUT# 5.45 thou/uL (2.00-7.15); RED BLOOD COUNT 4.72 mill/uL (4.20-5.60)
[2021-05-20 05:57] LABS: ALBUMIN 3.4 g/dL (3.2-5.0); ALKALINE PHOSPHATASE 63 u/l (38-126); ANION GAP 12 (6-22 (CALC)); BILIRUBIN, TOTAL 0.4 mg/dL (0.0-1.4); BUN 17 mg/dL (7-17); BUN/CREATININE RATIO 25 (12-20 (CALC)); CALCULATED LDLCHOLESTEROL 94 mg/dL (62-129 (CALC)); CARBON DIOXIDE 24 mmol/l (22-30); CHLORIDE 106 mmol/l (95-108); CHOLESTEROL HDL RATIO 6.2 (<4.4 (CALC)); CREATININE 0.7 mg/dL (0.5-1.0); GFR > 60 ML/MIN (>=60 (CALC)); GFR FOR AFR.AMER. > 60 ML/MIN (>=60 (CALC)); HDL CHOLESTEROL 31 mg/dL (>=40); POTASSIUM 4.1 mmol/l (3.5-5.1); SGOT/AST 24 u/l (14-36); SODIUM 138 mmol/l (137-146); TOTAL PROTEIN 6.6 g/dL (6.3-8.2); TOTAL TRIGLYCERIDES 333 mg/dl (30-149); VLDL CHOLESTROL 67 mg/dl (1-41 (CALC))
[2021-05-20 05:58] LABS: TOTAL CHOLESTEROL 192 mg/dl (0-199)
[2021-05-20 08:00] VITALS: BP 142/66
[2021-05-20 10:35] VITALS: BP 133/61
== END 2021-05-20 12:10 | DRG 313 ==
LOC: ED 18:53 → ED-I 21:29 → ED 21:42 → MS2 21:43
PROVIDERS: Family Medicine; ADMIT Internal Medicine; ATTEND Internal Medicine
DX: R07.9 Chest pain, unspecified (principal); E11.9 Type 2 diabetes mellitus without complications; I10 Essential (primary) hypertension; J43.9 Emphysema, unspecified; E78.5 Hyperlipidemia, unspecified; F31.9 Bipolar disorder, unspecified; M79.89 Other specified soft tissue disorders; F17.200 Nicotine dependence, unspecified, uncomplicated; R82.71 Bacteriuria; Z79.4 Long term (current) use of insulin; Z20.822 Contact with and (suspected) exposure to COVID-19
CPT/HCPCS: G0378; J1650